=== PATIENT | male | born 1960 | race Caucasian/White ===

== ENCOUNTER 2020-08-04 13:43 | Outpatient (REF) | payer MEDICARE, MEDICAID, SELFPAY ==
--- NOTE | ~2020-08-04 | XR_ITS ---
EXAMINATION: XR CHEST, 2 VIEWS CLINICAL INFORMATION: LLL PNA IN 2017. LT SIDED CHEST PAIN. COMPARISON: 05/05/2017 TECHNIQUE: PA and lateral views of the chest were obtained. FINDINGS: Sternal wires, surgical clips, and prosthetic aortic valve overlie the chest. Lungs are clear. No consolidation, pneumothorax, or pleural effusion. Cardiac and mediastinal contours are normal. Pulmonary vasculature is unremarkable. Trachea is midline. Mild degenerative disc disease in the thoracic spine. XR/XR chest 2V IMPRESSION: No acute pulmonary findings.
== END 2020-08-04 13:44 | disposition home or self-care (01) ==
LOC: HO.HMGCX 13:43
PROVIDERS: PCP Internal Medicine; Visit Provider Internal Medicine
DX: J18.9 Pneumonia, unspecified organism (principal)
CPT/HCPCS: 71046

== ENCOUNTER 2021-09-06 15:29 | Outpatient (REF) | payer MEDICARE, MEDICAID, SELFPAY ==
--- NOTE | ~2021-09-06 | XR_ITS ---
EXAMINATION: XR SHOULDER, LEFT CLINICAL INFORMATION: Left shoulder pain COMPARISON: 06/10/2019 TECHNIQUE: Four views of the left shoulder. FINDINGS: No acute fracture or dislocation. The glenohumeral joint is well aligned. Mild osteophyte formation. The acromioclavicular joint is intact. The visualized lung is clear. The visualized ribs are intact. XR/XR shoulder LT min 2V IMPRESSION: Mild degenerative changes of the glenohumeral joint.
== END 2021-09-06 15:30 | disposition home or self-care (01) ==
LOC: HO.HMGCX 15:29
PROVIDERS: PCP Internal Medicine; Visit Provider Internal Medicine
DX: M25.512 Pain in left shoulder (principal)
CPT/HCPCS: 73030

== ENCOUNTER → 2021-10-23 14:06 | Outpatient (BNVA) | payer MEDICARE, MEDICAID, SELFPAY | PROVIDERS: PCP Internal Medicine; Visit Provider Physician Assistant | DX: M79.18 Myalgia, other site (principal) | CPT/HCPCS: 99202 ==

== ENCOUNTER → 2021-11-14 13:44 | Outpatient (BNVA) | payer MEDICARE, MEDICAID, SELFPAY | PROVIDERS: PCP Internal Medicine; Visit Provider Nurse Practitioner Family | DX: M79.18 Myalgia, other site (principal); Z79.899 Other long term (current) drug therapy | CPT/HCPCS: 99202 ==

== ENCOUNTER 2023-09-26 11:28 | Outpatient (AMB) | payer MEDICARE, MEDICAID, SELFPAY ==
--- NOTE | 2023-09-26 11:32 | MHC.OFFVIS ---
Vital Signs 09/26/23 11:46 Height 6 ft 1 in Weight 222 lb BMI 29.3 BP 141/66 H Blood Pressure Location Lt brachial Position Sitting Pulse 64 Intake Visit Reasons: 2 right toes infected Intake Note: Patient is seen in office for evaluation and treatment of infection of two right toes. Pt c/o: onset one month, 2nd toe getting bigger due to neuropathy and big toe is curling up, had middle toe cut off the tip to release pressure, denies discharge, sees composition weatherboard applier for this issue Panel Machine Operator Required: No Accompanied by: Spouse Allergies peach [PEACH] Allergy (Intermediate, Verified 09/26/23 11:40) COLD SORES metformin [METFORMIN] Adverse Reaction (Severe, Verified 09/26/23 11:40) NAUSEA & VOMITING Medication List - Last Reconciled 09/26/23 by Otf Kaiser MD aspirin (Adult Aspirin Regimen) 81 mg PO DAILY atorvastatin 80 mg PO DAILY blood sugar diagnostic (FreeStyle Lite Strips) As directed blood-glucose meter (FreeStyle [place] Lite kit) As directed empagliflozin (Jardiance) 25 mg PO DAILY glipizide 10 mg PO BID levothyroxine 100 mcg PO DAILY lorazepam 0.5 mg PO TID PRN metoprolol succinate ER 25 mg PO DAILY omeprazole 20 mg PO DAILY pioglitazone 15 mg PO DAILY pregabalin (Lyrica) 300 mg PO TID repaglinide 2 mg PO TID tizanidine 4 mg PO BID PRN triamcinolone acetonide 0.1% appl topical BID HPI Comments Details: 62-year-old male patient with a long history of diabetes mellitus type 2 and previous right 3rd toe amputation now presenting with complaints of ulceration of the right 2nd toe. He reports a deformity in the 2nd toe resulting in the distal phalanx rubbing against his shoe. He now has a distal ulcer below the nail at the tip. This is been treated by his composition weatherboard applier Dr. Cleopatra Mckee DPM. He presents today to discuss a partial amputation of the right 2nd toe distal phalanx to allow healing. He reports bilateral neuropathy with no sensation of pain in the toes. He denies fever or chills. [facility] Medical History (Updated 09/26/23 @ 13:19 by Otf Kaiser MD) Diabetic foot ulcer Diabetes Surgical History H/O right knee surgery Hx of foot surgery History of ankle surgery Hx of heart surgery History of surgery on wrist Hx of cholecystectomy Social History Current occupation: RT hand Review of Systems Const All systems reviewed & are unremarkable except as noted in HPI and below Denies chills, Denies fever(s), Denies headache(s), Denies poor appetite and Denies weakness ENT Denies headache(s) Card Denies chest pain, Denies irregular heart rhythm, Denies palpitations and Denies dyspnea Resp Denies cough, Denies excessive phlegm production and Denies dyspnea GI Denies abdominal pain, Denies bloating, Denies change in bowel habits, Denies constipation, Denies heartburn, Denies diarrhea, Denies nausea and Denies vomiting Denies difficulty urinating and Denies urinary frequency Musc Denies back pain, Denies muscle weakness and Denies numbness Skin/Breast Denies changing lesions and Denies unusual bruising Neuro Denies headache(s), Denies numbness, Denies paresthesias and Denies weakness Psych Denies anxiety and Denies depression Endo Denies palpitations Nahun/Lymph Denies lymphadenopathy Physical Exam Vital Signs: Last Vital Signs Pulse 64 09/26/23 11:46 BP 141/66 H 09/26/23 11:46 BMI result Body Mass Index 29.3 Const General: cooperative and no acute distress Nutritional Appearance: well nourished Orientation/consciousness: patient oriented x3 Limitations: no limitations HEENT Head: Yes normocephalic and Yes atraumatic Ears: hearing grossly normal bilaterally Resp Effort & Inspection: normal respiratory effort, no audible wheezes, no cough and no respiratory distress Cardio Jugular venous distension: no JVD GI Inspection: Yes normal to inspection Skin Other: Warm, dry, no rash Neuro General: patient oriented x3 Extrem General: Yes no clubbing, cyanosis or edema Ankle/foot/toe images: 1. Site of ulceration and swelling 2nd digit right foot distal phalanx. No erythema noted in the proximal 2nd toe Assessment & Plan Assessment & Plan (1) Diabetic foot ulcer: Code(s): E11.621 - Type 2 diabetes mellitus with foot ulcer; L97.509 - Non-pressure chronic ulcer of other part of unspecified foot with unspecified severity Category: Medical Qualifiers: Diabetic foot ulcer location: toe Diabetes mellitus type: type 2 Laterality: right Non-pressure ulcer stage: with fat layer exposed Qualified Code(s): E11.621 - Type 2 diabetes mellitus with foot ulcer; L97.512 - Non-pressure chronic ulcer of other part of right foot with fat layer exposed Plan 62-year-old male patient presenting with a nonhealing ulcer of the right 2nd toe. He had a prior history of amputation of the right 3rd toe and presents today to discuss partial amputation of the affected 2nd right toe. The remainder of the toe appears healthy without erythema/infection. We discussed partial amputation of the distal phalanx as an option and after a discussion of the procedure, risks and alternatives, he consents to partial amputation of the right 2nd toe. Coding Level of Care Code New Pt Level 4 (90030) Diagnoses Diabetic ulcer of toe of right foot associated with type 2 diabetes mellitus, with fat layer exposed E11.621; L97.512 Diabetic foot ulcer location: toe Diabetes mellitus type: type 2 Laterality: right Non-pressure ulcer stage: with fat layer exposed
[2023-09-26 11:46] VITALS: BP 141/66; PULSE 64; BMI 29.3
== END 2023-09-26 12:25 | disposition home or self-care (01) ==
PROVIDERS: PCP Internal Medicine; Referring Provider Internal Medicine; Visit Provider Surgery
DX: E11.621 Type 2 diabetes mellitus with foot ulcer (principal); L97.512 Non-pressure chronic ulcer of other part of right foot with fat layer exposed
CPT/HCPCS: 99204

== ENCOUNTER → 2023-09-26 11:28 | Outpatient (BNVA) | payer MEDICARE, MEDICAID, SELFPAY | PROVIDERS: PCP Internal Medicine; Referring Provider Internal Medicine; Visit Provider Surgery | DX: E11.621 Type 2 diabetes mellitus with foot ulcer (principal); L97.512 Non-pressure chronic ulcer of other part of right foot with fat layer exposed | CPT/HCPCS: 99202 ==

== ENCOUNTER 2023-10-23 13:28 | Outpatient (REF) | payer MEDICARE, MEDICAID, SELFPAY ==
[2023-10-23 14:23] LABS: Estimated Average Glucose 157 mg/dL; Hemoglobin A1c % 7.1 % (<6.0)
[2023-10-23 14:42] LABS: Alanine Aminotransferase 28 U/L (0-40); Albumin Level 4.7 g/dL (3.5-5.0); Alkaline Phosphatase 64 U/L (39-117); Anion Gap 14 (12-20); Aspartate Amino Transferase 20 U/L (5-37); Bilirubin Total 0.6 mg/dL (0.0-1.0); Blood Urea Nitrogen 17 mg/dL (9-16); Calcium 9.6 mg/dL (8.4-10.2); Carbon Dioxide 21 mmol/L (22-29); Chloride 108 mmol/L (96-108); Estimated Glomerular Filt Rate > 60; Glucose Random 207 mg/dL (60-115); Potassium 3.9 mmol/L (3.3-5.1); Sodium 139 mmol/L (135-145); Total Protein 7.7 g/dL (6.5-8.0)
[2023-10-23 14:53] LABS: Free T4 (Free Thyroxine) 0.98 ng/dL (0.71-1.85); Thyroid Stimulating Hormone 6.05 uIU/mL (0.32-4.0)
== END 2023-10-23 13:29 | disposition home or self-care (01) ==
LOC: HO.LAB 13:28
PROVIDERS: PCP Internal Medicine; Visit Provider Internal Medicine
DX: R53.83 Other fatigue (principal); E11.9 Type 2 diabetes mellitus without complications
CPT/HCPCS: 36415; 80053; 83036; 84439; 84443

== ENCOUNTER 2023-11-03 06:12 | Day surgery (SDC) | payer MEDICARE, MEDICAID, SELFPAY ==
--- NOTE | 2023-10-28 10:57 | HO.ANESPROP2 ---
HPI - Anesthesia Eval Consult details Narrative: 63yo M for Right PARTIAL 2nd Toe Amputation, 11/03/23 Pending cardiac clearance d/t diaphoretic No recent illness No CP/SOB within limits of foot pain s/p AVR 2017. Follows [facility] CVA. 2018 DM. A1C 7.1 as of 10/2023 GERD. ppi controls Pt declines to trim or shave barrera. Educated on risk. PMF Active Problems Active Problems: All Active Problems Myofascial pain dysfunction syndrome (Acute) Diabetic foot ulcer (Acute) Past Medical History Medical History Neuropathy CAD (coronary artery disease) Anxiety CVA (cerebral vascular accident) Thrombocytopenia Gastroparesis Coronary atherosclerosis Endocarditis Abscess of aortic root Aortic regurgitation Hyperlipidemia Thyroid disease GERD (gastroesophageal reflux disease) Syncope Diabetic foot ulcer Diabetes Family History Family history of problems with anesthesia: No Surgical History Surgical History Hx of toe surgery H/O colonoscopy History of facial surgery Hx of aortic valve replacement Hx of cardiac catheterization H/O right knee surgery Hx of foot surgery History of ankle surgery History of surgery on wrist Hx of cholecystectomy History of Problems with Anesthesia: No Social History Social History Are you a primary adult day care worker to a significant other at home: No Do you presently have visiting nurse or other home services: No Patient Tobacco Use Status: Former Tobacco user Current occupation: RT hand Meds Allergies Allergy/AdvReac Type Severity Reaction Status Date / Time peach [PEACH] Allergy Intermediate COLD SORES Verified 11/03/23 06:41 metformin [METFORMIN] AdvReac Severe NAUSEA & Verified 11/03/23 06:41 VOMITING Home Medications ?Medication ?Instructions ?Recorded ?Confirmed ?Last Taken ?Type atorvastatin 80 mg tablet 80 mg PO BEDTIME 10/23/21 11/03/23 11/02/23 History blood sugar diagnostic (FreeStyle #10 ea 10/23/21 Unknown History Lite Strips) blood-glucose meter (FreeStyle #1 ea 10/23/21 Unknown History [place] Lite kit) empagliflozin 25 mg tablet 25 mg PO DAILY 10/23/21 11/03/23 10/31/23 History (Jardiance) glipizide 5 mg tablet 10 mg PO BID 10/23/21 11/03/23 11/02/23 History metoprolol succinate 25 mg 25 mg PO DAILY 10/23/21 11/03/23 11/03/23 History tablet,extended release 24 hr omeprazole 20 mg capsule,delayed 20 mg PO DAILY 10/23/21 11/03/23 11/03/23 History release triamcinolone acetonide 0.1 % 1 appl topical BID PRN Wound Care 10/23/21 10/28/23 Unknown History topical cream aspirin 81 mg tablet,delayed 81 mg PO DAILY 11/14/21 10/28/23 Unknown History release (Adult Aspirin Regimen) pioglitazone 15 mg tablet 15 mg PO DAILY 11/14/21 11/03/23 11/02/23 History pregabalin 300 mg capsule (Lyrica) 300 mg PO BID 11/14/21 11/03/23 11/03/23 History acetaminophen 650 mg 650 mg PO Q8H PRN Pain 10/28/23 10/28/23 Unknown History tablet,extended release amoxicillin 500 mg tablet 2,000 mg PO ONCE 10/28/23 10/28/23 Unknown History cyclobenzaprine 10 mg tablet 10 mg PO TID PRN muscle spasm 10/28/23 10/28/23 Unknown History levothyroxine 125 mcg tablet 125 mcg PO DAILY 10/28/23 11/03/23 11/03/23 History lorazepam 0.5 mg tablet 1 mg PO DAILY PRN Anxiety 10/28/23 10/28/23 Unknown History Exam Airway Mallampati Class: I (Small mouth) TM Dist: >3cm Neck ROM: Full Loose/Missing/Broken Teeth: Yes (Broken throughout, no loose, Left upper molars = permanent bridge) Heart: RRR Lungs: CTAB Assessment and Plan Assessment Anesthesia Assessment: Anesthesia Plan Discussed and PAT Visit Final Anesthetic Review Family History of Problems with Anesthesia: No History of Problems with Anesthesia: No
[2023-10-28 11:05] VITALS: BMI 29.3
[2023-10-28 11:11] VITALS: BP 130/65; PULSE 57; RESP 20; O2SAT 97
[2023-11-03 06:52] LABS: Glucose, Whole Blood 182 mg/dL (60-115)
[2023-11-03 06:55] VITALS: BP 133/73; PULSE 55; RESP 16; TEMP 35.9; O2SAT 100
[2023-11-03] MEDS: Lactated Ringers 1,000 ML 100 ML IVCONT (06:57)
--- NOTE | 2023-11-03 07:27 | P.HPSUR_ITS ---
Pre-Procedural Eval Section A - 24 Hr Update-Section A only Date of Service: 11/03/23 The patient is an INPATIENT: No Changes since office visit: Yes Patient answered all questions; No Cold of Flu in the past 2 weeks, No New Medical Problems and No Changes in Medication The patient has been examined within 24 hours of the surgical procedure. The History & Physical has been completed within 30 days and I have reviewed it.: No Section B - Complete if H&P > 30 days Chief Complaint: Non-pressure chronic ulcer of other part of right, Details of Present Illness: No changes since prior visit Relevant Family History (Specify if Yes): No Relevant Social History: None Present Medications: see Short Stay Collaborative assessment Medical History: Significant History (Diabetes) History of Previous Operations: Relevant previous surgery/procedure and date(s) (Previous toe amputation 3rd toe right foot) Allergies: Allergies Allergy/AdvReac Type Severity Reaction Status Date / Time peach [PEACH] Allergy Intermediate COLD SORES Verified 11/03/23 06:41 metformin [METFORMIN] AdvReac Severe NAUSEA & Verified 11/03/23 06:41 VOMITING Review of Systems Sugical H&P ROS: Negative: Constitution, Cardiovascular, Respiratory, Neurological, Psychiatric, Hem-Onc, Allergic/Immunologic, Gastrointestinal, Genitourinary, Musculoskeletal, Integumentary, Endocrine and Eye s/Ears/Nose/Throat Exam Surgical H&P Exam: Normal: HEENT, Normal: Heart, Normal: Lungs, Normal: Extremities, Normal: Abdomen, Normal: Skin and Normal: Neurological Plan Diagnosis/Plan: Unchanged I have reviewed the history and physical and performed a pertinent physical examination on my patient. No changes have occurred unless specified. Time Spent With Patient Time: Total time managing care of this patient today ____ minutes.
--- NOTE | 2023-11-03 07:57 | HO.ANESPROP2 ---
[facility] Active Problems Active Problems: All Active Problems Myofascial pain dysfunction syndrome (Acute) Diabetic foot ulcer (Acute) Past Medical History Medical History Neuropathy CAD (coronary artery disease) Anxiety CVA (cerebral vascular accident) Thrombocytopenia Gastroparesis Coronary atherosclerosis Endocarditis Abscess of aortic root Aortic regurgitation Hyperlipidemia Thyroid disease GERD (gastroesophageal reflux disease) Syncope Diabetic foot ulcer Diabetes Functional capacity: independent ambulation Family History Family history of problems with anesthesia: No Surgical History Surgical History Hx of toe surgery H/O colonoscopy History of facial surgery Hx of aortic valve replacement Hx of cardiac catheterization H/O right knee surgery Hx of foot surgery History of ankle surgery History of surgery on wrist Hx of cholecystectomy History of Problems with Anesthesia: No Social History Social History Are you a primary acute care physician to a significant other at home: No Do you presently have visiting nurse or other home services: No Patient Tobacco Use Status: Former Tobacco user Use of substances other than those prescribed or required for medical reasons: No Substance Use Frequency: Occasionally Have you been hit, kicked, punched, or otherwise hurt by someone within the past year? If so, by whom?: No Are you DNR?: No Advance Directives: No Advance Directives Information Provided: Yes Advance Directives on File: No Recently lost weight without trying: No Eating poorly because of decreased appetite: No Nutrition Risks: No Nutritional Risk Poor oral hygiene: Yes (missing teeth and a upper bridge) Current occupation: RT hand Meds Allergies Allergy/AdvReac Type Severity Reaction Status Date / Time peach [PEACH] Allergy Intermediate COLD SORES Verified 11/03/23 06:41 metformin [METFORMIN] AdvReac Severe NAUSEA & Verified 11/03/23 06:41 VOMITING Active Medications: Current Medications Lactated Ringer's (Lr) 1,000 mls @ 100 mls/hr IVCONT .Q10H DEISY Last Admin: 11/03/23 06:57 Dose: 100 mls/hr Home Medications ?Medication ?Instructions ?Recorded ?Confirmed ?Last Taken ?Type atorvastatin 80 mg tablet 80 mg PO BEDTIME 10/23/21 11/03/23 11/02/23 History blood sugar diagnostic (FreeStyle #10 ea 10/23/21 Unknown History Lite Strips) blood-glucose meter (FreeStyle #1 ea 10/23/21 Unknown History [place] Lite kit) empagliflozin 25 mg tablet 25 mg PO DAILY 10/23/21 11/03/23 10/31/23 History (Jardiance) glipizide 5 mg tablet 10 mg PO BID 10/23/21 11/03/23 11/02/23 History metoprolol succinate 25 mg 25 mg PO DAILY 10/23/21 11/03/23 11/03/23 History tablet,extended release 24 hr omeprazole 20 mg capsule,delayed 20 mg PO DAILY 10/23/21 11/03/23 11/03/23 History release triamcinolone acetonide 0.1 % 1 appl topical BID PRN Wound Care 10/23/21 10/28/23 Unknown History topical cream aspirin 81 mg tablet,delayed 81 mg PO DAILY 11/14/21 10/28/23 Unknown History release (Adult Aspirin Regimen) pioglitazone 15 mg tablet 15 mg PO DAILY 11/14/21 11/03/23 11/02/23 History pregabalin 300 mg capsule (Lyrica) 300 mg PO BID 11/14/21 11/03/23 11/03/23 History acetaminophen 650 mg 650 mg PO Q8H PRN Pain 10/28/23 10/28/23 Unknown History tablet,extended release amoxicillin 500 mg tablet 2,000 mg PO ONCE 10/28/23 10/28/23 Unknown History cyclobenzaprine 10 mg tablet 10 mg PO TID PRN muscle spasm 10/28/23 10/28/23 Unknown History levothyroxine 125 mcg tablet 125 mcg PO DAILY 10/28/23 11/03/23 11/03/23 History lorazepam 0.5 mg tablet 1 mg PO DAILY PRN Anxiety 10/28/23 10/28/23 Unknown History Exam Height,Weight and Vital Signs: Height 6 ft 1 in Weight 100.698 kg Last Vital Signs Temp 96.7 F L 11/03/23 06:55 Pulse 55 11/03/23 06:55 Resp 16 11/03/23 06:55 BP 133/73 11/03/23 06:55 Pulse Ox 100 11/03/23 06:55 O2 Del Method Room Air 11/03/23 06:55 Pertinent Lab Results Pertinent Lab Results: Laboratory Tests 11/03/23 06:48 POC Glucose 182 H Airway Mallampati Class: III TM Dist: >3cm Neck ROM: Full Heart: RRR Lungs: CTA Assessment and Plan Assessment Anesthesia Assessment: Anesthesia Plan Discussed and Smoking Cess. Discussed Final Anesthetic Review Family History of Problems with Anesthesia: No History of Problems with Anesthesia: No NPO: Yes ASA Class: III Final Preanesthetic Review: Meds/Allgs Chart Reviewed, Consent Obtained/Reviewed and Anes Risks/Benef Reviewed Patient Risk: Low Procedure Risk: Low Anesthetic Plan Anesthetic Plan: GA Disposition: Standard PACU
--- NOTE | 2023-11-03 08:27 | P.OP_ITS ---
Operative Note Operative Note Date of Service: 11/03/23 Narrative: Preoperative diagnosis: Nonhealing right 2nd toe diabetic ulcer Postoperative diagnosis: Same Procedure: Partial amputation right 2nd toe Surgeon: Otf Kaiser MD Internal Affairs Investigator: Jacob Walker MS-3, Khurram Jolley Anesthesia: General LMA Indications for procedure: 63-year-old male patient with previous history of diabetes and a long history of a nonhealing ulcer of the right 2nd toe. He previously underwent amputation of the right 3rd toe. He presents today for partial amputation of the right 2nd toe. Operative findings: Ulceration at the tip of the right 2nd toe with no evidence of abscess Specimen: Right toe distal and middle phalanx Estimated blood loss: 5 mL Complications: None Procedure details: Patient was brought to the OR placed in a supine position. After administering general anesthesia the patient's right foot was prepped with Betadine and draped in a sterile fashion. A surgical time-out was called the consent confirmed. Patient received preoperative antibiotics and Venodyne boots were in place. A digital block was then applied to the 2nd toe using 0.5% Sensorcaine. A fishmouth type incision was then created to incorporate the ulceration and nail bed at the distal phalanx. This was continued on either side along the middle phalanx. Electrocautery was then used to dissect down to bone and hemostasis was assured using electrocautery. When the distal middle phalanx was fully exposed a bone cutter was used to divide the bone at this level. The specimen was passed off the table and sent to pathology for further examination. Wounds were then irrigated with saline solution and suctioned dry. Dermis was then reapproximated using interrupted 3-0 Polysorb sutures. Skin was closed using interrupted 4-0 nylon sutures. Sterile dressings consisting of 4 x 4 gauze and Kerlix were then applied. The patient tolerated the procedure well. Sponge, instrument, and needle counts reported as correct. The patient was transferred to PACU in stable condition.
[2023-11-03 08:34] VITALS: BP 120/64; PULSE 64; RESP 16; TEMP 35.9; O2SAT 96
[2023-11-03 08:39] VITALS: BP 126/69; PULSE 59; RESP 16; O2SAT 96
[2023-11-03 08:44] VITALS: BP 127/70; PULSE 61; RESP 16; O2SAT 96
[2023-11-03 08:49] VITALS: BP 123/69; PULSE 61; RESP 16; TEMP 36.1; O2SAT 95
[2023-11-03 09:04] VITALS: BP 127/60; PULSE 55; RESP 16; O2SAT 97
--- NOTE | 2023-11-03 09:26 | HO.POSTANES ---
Post Anesthesia Evaluation Post Anesthesia Evaluation Date of Service: 11/03/23 Vital Signs: Vital Signs Temp Pulse Resp BP Pulse Ox O2 Del Method 11/03/23 09:04 55 16 127/60 97 Room Air 11/03/23 08:49 97 F 61 16 123/69 95 Room Air 11/03/23 08:44 61 16 127/70 96 Room Air 11/03/23 08:39 59 16 126/69 96 Room Air 11/03/23 08:34 96.7 F L 64 16 120/64 96 Room Air 11/03/23 06:55 96.7 F L 55 16 133/73 100 Room Air Anesthesia: General LMA Mental Status: Awake Pain Control: Satisfactory Nausea/Vomiting: None Hydration: Adequate Anesthesia-Related Issues: No Anes. Related Issues
--- NOTE | 2023-11-03 17:38 | HO.POSTANES ---
Post Anesthesia Evaluation Post Anesthesia Evaluation Date of Service: 11/03/23 Vital Signs: Vital Signs Temp Pulse Resp BP Pulse Ox O2 Del Method 11/03/23 09:04 55 16 127/60 97 Room Air 11/03/23 08:49 97 F 61 16 123/69 95 Room Air 11/03/23 08:44 61 16 127/70 96 Room Air 11/03/23 08:39 59 16 126/69 96 Room Air 11/03/23 08:34 96.7 F L 64 16 120/64 96 Room Air 11/03/23 06:55 96.7 F L 55 16 133/73 100 Room Air Anesthesia: General Mental Status: Awake Pain Control: Satisfactory Nausea/Vomiting: None Hydration: Adequate Anesthesia-Related Issues: No Anes. Related Issues
== END 2023-11-03 09:43 | disposition home or self-care (01) ==
PROVIDERS: PCP Internal Medicine; Visit Provider Surgery
PROC: (CPT 28124; principal; 2023-11-03 07:30)
DX: E11.621 Type 2 diabetes mellitus with foot ulcer (principal); L97.512 Non-pressure chronic ulcer of other part of right foot with fat layer exposed; Z89.421 Acquired absence of other right toe(s); Z79.84 Long term (current) use of oral hypoglycemic drugs; Z79.82 Long term (current) use of aspirin; Z79.899 Other long term (current) drug therapy; Z88.8 Allergy status to other drugs, medicaments and biological substances; Z98.890 Other specified postprocedural states
CPT/HCPCS: 28124; 82947; 88305; 88311; J0690; J2250; J2405; J2704; J2795; J3010

== ENCOUNTER → 2023-11-03 06:12 | Outpatient (BNV) | payer MEDICARE, MEDICAID, SELFPAY | PROVIDERS: PCP Internal Medicine; Visit Provider Surgery | DX: E11.621 Type 2 diabetes mellitus with foot ulcer (principal); L97.512 Non-pressure chronic ulcer of other part of right foot with fat layer exposed | CPT/HCPCS: 28825 ==

== ENCOUNTER → 2023-11-07 10:28 | Outpatient (BNVA) | payer MEDICARE, MEDICAID, SELFPAY | PROVIDERS: PCP Internal Medicine; Visit Provider Surgery | DX: Z48.00 Encounter for change or removal of nonsurgical wound dressing (principal); Z89.429 Acquired absence of other toe(s), unspecified side | CPT/HCPCS: 99211 ==

== ENCOUNTER 2023-11-13 14:56 | Outpatient (AMB) | payer MEDICARE, MEDICAID, SELFPAY ==
--- NOTE | 2023-11-13 15:06 | MHC.OFFVIS ---
Vital Signs 11/13/23 15:14 Height 6 ft 1 in Weight 226 lb BMI 29.8 BP 121/58 L Blood Pressure Location Lt brachial Position Sitting Pulse 60 Intake Visit Reasons: S/P partial amputation Rt second toe Intake Note: Patient is seen in office for post op assessment post partial amputation right 2nd toe. Pt c/o: sore, open spot, discharge, dry blood around the area Op: 11/03/23 Physical Fitness Teacher Required: No Accompanied by: Spouse Allergies peach [PEACH] Allergy (Intermediate, Verified 11/13/23 15:13) COLD SORES metformin [METFORMIN] Adverse Reaction (Severe, Verified 11/13/23 15:13) NAUSEA & VOMITING HPI Comments Details: 62-year-old male patient with a long history of diabetes mellitus type 2 and previous right 3rd toe amputation now presenting with complaints of ulceration of the right 2nd toe. He reports a deformity in the 2nd toe resulting in the distal phalanx rubbing against his shoe. He developed a distal ulcer below the nail at the tip. This is been treated by his manufacturing accountant Dr. Cleopatra Mckee DPM. He subsequently underwent partial amputation of the right 2nd toe. He returns today for wound check and suture removal. [facility] Medical History Neuropathy CAD (coronary artery disease) Anxiety CVA (cerebral vascular accident) Thrombocytopenia Gastroparesis Coronary atherosclerosis Endocarditis Abscess of aortic root Aortic regurgitation Hyperlipidemia Thyroid disease GERD (gastroesophageal reflux disease) Syncope Diabetic foot ulcer Diabetes Surgical History History of partial ray amputation of second toe of right foot (11/03/23) Hx of toe surgery H/O colonoscopy History of facial surgery Hx of aortic valve replacement Hx of cardiac catheterization H/O right knee surgery Hx of foot surgery History of ankle surgery History of surgery on wrist Hx of cholecystectomy Social History Are you a primary physician assistant primary care to a significant other at home: No Do you presently have visiting nurse or other home services: No Patient Tobacco Use Status: Former Tobacco user Current occupation: RT hand Physical Exam Const General: no acute distress Nutritional Appearance: well nourished Orientation/consciousness: patient oriented x3 Resp Effort & Inspection: normal respiratory effort Neuro General: patient oriented x3 Extrem Other: Partial amputation of right 2nd toe. Incision is discolored from bleeding post procedure however wounds are clean and intact. Sutures removed and Steri-Strips applied. Assessment & Plan Assessment & Plan (1) Diabetic foot ulcer: Code(s): E11.621 - Type 2 diabetes mellitus with foot ulcer; L97.509 - Non-pressure chronic ulcer of other part of unspecified foot with unspecified severity Category: Medical Qualifiers: Diabetic foot ulcer location: toe Diabetes mellitus type: type 2 Laterality: right Non-pressure ulcer stage: with fat layer exposed Qualified Code(s): E11.621 - Type 2 diabetes mellitus with foot ulcer; L97.512 - Non-pressure chronic ulcer of other part of right foot with fat layer exposed Plan Patient returns for wound check following right 2nd toe partial amputation. Wounds are clean and intact. Sutures removed and Steri-Strips applied. I recommended follow-up examination in 1 month. He should call sooner for any new complaints Coding Level of Care Code Global (56717) Diagnoses Diabetic ulcer of toe of right foot associated with type 2 diabetes mellitus, with fat layer exposed E11.621; L97.512 Diabetic foot ulcer location: toe Diabetes mellitus type: type 2 Laterality: right Non-pressure ulcer stage: with fat layer exposed
[2023-11-13 15:14] VITALS: BP 121/58; PULSE 60; BMI 29.8
== END 2023-11-13 15:31 | disposition home or self-care (01) ==
PROVIDERS: PCP Internal Medicine; Visit Provider Surgery
DX: E11.621 Type 2 diabetes mellitus with foot ulcer (principal); L97.512 Non-pressure chronic ulcer of other part of right foot with fat layer exposed
CPT/HCPCS: 99024

== ENCOUNTER → 2023-11-13 14:56 | Outpatient (BNVA) | payer MEDICARE, MEDICAID, SELFPAY | PROVIDERS: PCP Internal Medicine; Visit Provider Surgery | DX: E11.621 Type 2 diabetes mellitus with foot ulcer (principal); L97.512 Non-pressure chronic ulcer of other part of right foot with fat layer exposed; Z89.411 Acquired absence of right great toe | CPT/HCPCS: 99212 ==

== ENCOUNTER 2023-11-21 08:34 | Outpatient (REF) | payer MEDICARE, MEDICAID, SELFPAY ==
[2023-11-21 09:28] LABS: MANUAL DIFF FLAG NO
[2023-11-21 10:23] LABS: Basophils Percent Auto 0.6 % (0-2); Eosinophils Absolute Auto 0.1 X10*3/uL (0.0-0.4); Eosinophils Percent Auto 1.8 % (0-4); Hematocrit 44.6 % (42.0-52.0); Hemoglobin 15.1 g/dl (14.0-18.0); Imm Gran Abs Auto 0.04 X10*3/uL (0.00-0.03); Imm Gran Pct Auto 0.6 % (0.0-0.4); Lymphocytes Absolute Auto 2.2 X10*3/uL (1.2-4.9); Lymphocytes Percent Auto 31.5 % (20-40); Mean Corpuscular HGB Conc 33.9 g/dl (31.0-36.0); Mean Corpuscular Hemoglobin 31.4 pg (27.0-33.0); Mean Corpuscular Volume 92.7 fL (80.0-98.0); Monocytes Absolute Auto 0.5 X10*3/uL (0.1-1.2); Monocytes Percent Auto 6.9 % (2-11); Neutrophils Percent Auto 58.6 % (45-73); Red Blood Count 4.81 X10*6/uL (4.60-5.80); Red Cell Distribution Width 13.2 % (11.0-16.0); White Blood Count 6.8 X10*3/uL (4.8-10.8)
[2023-11-21 10:55] LABS: Mean Platelet Volume 12.6 fL (9.4-12.4); Platelet Count 98 X10*3/uL (160-400)
== END 2023-11-21 08:35 | disposition home or self-care (01) ==
LOC: HO.LAB 08:34
PROVIDERS: PCP Internal Medicine; Visit Provider Surgery
DX: D12.6 Benign neoplasm of colon, unspecified (principal); E11.621 Type 2 diabetes mellitus with foot ulcer; L97.512 Non-pressure chronic ulcer of other part of right foot with fat layer exposed
CPT/HCPCS: 36415; 85025; 99212

== ENCOUNTER 2023-11-21 08:34 | Outpatient (AMB) | payer MEDICARE, MEDICAID, SELFPAY ==
--- NOTE | 2023-11-21 08:44 | MHC.OFFVIS ---
Vital Signs 11/21/23 08:45 Height 6 ft 1 in Weight 226 lb 0.004 oz BMI 29.8 Intake Visit Reasons: wound check Intake Note: Patient is seen in office for wound check, post partial amputation Rt second toe. Pt c/o: reports toe is split , reports concern of infection, pt will like to get labs and x-ray ordered to rule out ? infection, reports non-healing wound. 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 Accompanied by: Spouse Allergies peach [PEACH] Allergy (Intermediate, Verified 11/21/23 08:51) COLD SORES metformin [METFORMIN] Adverse Reaction (Severe, Verified 11/21/23 08:51) NAUSEA & VOMITING Medication List - Last Reconciled 11/21/23 by Otf Kaiser MD acetaminophen ER 650 mg PO Q8H PRN amoxicillin 2,000 mg PO ONCE aspirin (Adult Aspirin Regimen) 81 mg PO DAILY atorvastatin 80 mg PO BEDTIME blood sugar diagnostic (FreeStyle Lite Strips) As directed blood-glucose meter (FreeStyle [place] Lite kit) As directed cyclobenzaprine 10 mg PO TID PRN empagliflozin (Jardiance) 25 mg PO DAILY glipizide 10 mg PO BID levothyroxine 125 mcg PO DAILY lorazepam 1 mg PO DAILY PRN metoprolol succinate ER 25 mg PO DAILY omeprazole 20 mg PO DAILY oxycodone 5 mg PO Q6H PRN pioglitazone 15 mg PO DAILY pregabalin (Lyrica) 300 mg PO BID triamcinolone acetonide 0.1% 1 appl topical BID PRN HPI Comments Details: Patient returns to report that the wound had popped open on Friday after going into the pool. He reports this always happens to him. He reports he has been keeping it covered. [facility] Medical History (Updated 11/21/23 @ 09:11 by Otf Kaiser MD) Neuropathy CAD (coronary artery disease) Anxiety CVA (cerebral vascular accident) Thrombocytopenia Gastroparesis Coronary atherosclerosis Endocarditis Abscess of aortic root Aortic regurgitation Hyperlipidemia Thyroid disease GERD (gastroesophageal reflux disease) Syncope Diabetic foot ulcer Diabetes Surgical History History of partial ray amputation of second toe of right foot (11/03/23) Hx of toe surgery H/O colonoscopy History of facial surgery Hx of aortic valve replacement Hx of cardiac catheterization H/O right knee surgery Hx of foot surgery History of ankle surgery History of surgery on wrist Hx of cholecystectomy Social History Are you a primary intensive care medicine specialist to a significant other at home: No Do you presently have visiting nurse or other home services: No Patient Tobacco Use Status: Former Tobacco user Current occupation: RT hand Physical Exam Vital Signs: BMI result Body Mass Index 29.8 Extrem Other: Right 2nd toe has split open with skin noted in the center. The skin was excised to reveal subcutaneous tissue but no exposed bone. Silver alginate followed by dry sterile dressings applied. Assessment & Plan Assessment & Plan (1) Diabetic foot ulcer: Comment: Right 2nd toe Code(s): E11.621 - Type 2 diabetes mellitus with foot ulcer; L97.509 - Non-pressure chronic ulcer of other part of unspecified foot with unspecified severity Category: Medical Qualifiers: Diabetic foot ulcer location: toe Diabetes mellitus type: type 2 Laterality: right Non-pressure ulcer stage: with fat layer exposed Qualified Code(s): E11.621 - Type 2 diabetes mellitus with foot ulcer; L97.512 - Non-pressure chronic ulcer of other part of right foot with fat layer exposed Plan Patient should apply silver alginate daily with dry sterile dressings and keep the wound covered at all times. He should avoid going in the pool. I recommended he follow-up in 1 week. We will check a CBC today. Orders: Orders Complete Blood Count Auto Diff Today D12.6 - Benign neoplasm of colon, unspecified Coding Level of Care Code Global (51211) Diagnoses Diabetic ulcer of toe of right foot associated with type 2 diabetes mellitus, with fat layer exposed E11.621; L97.512 Diabetic foot ulcer location: toe Diabetes mellitus type: type 2 Laterality: right Non-pressure ulcer stage: with fat layer exposed
[2023-11-21 08:45] VITALS: BMI 29.8
== END 2023-11-21 09:09 | disposition home or self-care (01) ==
PROVIDERS: PCP Internal Medicine; Visit Provider Surgery
DX: E11.621 Type 2 diabetes mellitus with foot ulcer (principal); L97.512 Non-pressure chronic ulcer of other part of right foot with fat layer exposed
CPT/HCPCS: 99024

== ENCOUNTER 2023-11-27 15:11 | Outpatient (AMB) | payer MEDICARE, MEDICAID, SELFPAY ==
--- NOTE | 2023-11-27 15:17 | A.OFFVIS_ITS ---
Vital Signs 11/27/23 15:18 Height 6 ft 1 in Weight 224 lb 13.944 oz BMI 29.7 Intake Visit Reasons: wound check Intake Note: Patient is seen in office for wound check, post partial amputation Rt second toe. 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 He reports bleeding from the incision but has been applying the silver alginate as instructed. He denies any new symptoms in the foot. Previous laboratories revealed a normal WBC. [facility] Medical History Neuropathy CAD (coronary artery disease) Anxiety CVA (cerebral vascular accident) Thrombocytopenia Gastroparesis Coronary atherosclerosis Endocarditis Abscess of aortic root Aortic regurgitation Hyperlipidemia Thyroid disease GERD (gastroesophageal reflux disease) Syncope Diabetic foot ulcer Diabetes Surgical History History of partial ray amputation of second toe of right foot (11/03/23) Hx of toe surgery H/O colonoscopy History of facial surgery Hx of aortic valve replacement Hx of cardiac catheterization H/O right knee surgery Hx of foot surgery History of ankle surgery History of surgery on wrist Hx of cholecystectomy Social History Are you a primary healthcare network pricing consultant to a significant other at home: No Do you presently have visiting nurse or other home services: No Patient Tobacco Use Status: Former Tobacco user Current occupation: RT hand Physical Exam Vital Signs: BMI result Body Mass Index 29.7 Extrem Other: Right 2nd toe Wound remained however there is new granulation tissue noted at the wound base with epithelialization at the margins. Silver alginate reapplied dry sterile dressings covering silver alginate, followed by paper tape. No new necrotic tissue identified. No evidence of underlying abscess. Assessment & Plan Assessment & Plan (1) Diabetic foot ulcer: Comment: Right 2nd toe Code(s): E11.621 - Type 2 diabetes mellitus with foot ulcer; L97.509 - Non-pressure chronic ulcer of other part of unspecified foot with unspecified severity Category: Medical Qualifiers: Diabetic foot ulcer location: toe Diabetes mellitus type: type 2 [place] terality: right Non-pressure ulcer stage: with fat layer exposed Qualified Code(s): E11.621 - Type 2 diabetes mellitus with foot ulcer; L97.512 - Non- pressure chronic ulcer of other part of right foot with fat layer exposed Plan Continue local care with Silver alginate and dry sterile dressings. follow- up in 2 weeks. Coding Level of Care Code Global (32634) Diagnoses Diabetic ulcer of toe of right foot associated with type 2 diabetes mellitus, with fat layer exposed E11.621; L97.512 Diabetic foot ulcer location: toe Diabetes mellitus type: type 2 Laterality: right Non-pressure ulcer stage: with fat layer exposed
[2023-11-27 15:18] VITALS: BMI 29.7
== END 2023-11-27 15:29 | disposition home or self-care (01) ==
PROVIDERS: PCP Internal Medicine; Visit Provider Surgery
DX: E11.621 Type 2 diabetes mellitus with foot ulcer (principal); L97.512 Non-pressure chronic ulcer of other part of right foot with fat layer exposed
CPT/HCPCS: 99024

== ENCOUNTER → 2023-11-27 15:11 | Outpatient (BNVA) | payer MEDICARE, MEDICAID, SELFPAY | PROVIDERS: PCP Internal Medicine; Visit Provider Surgery | DX: E11.621 Type 2 diabetes mellitus with foot ulcer (principal); L97.512 Non-pressure chronic ulcer of other part of right foot with fat layer exposed | CPT/HCPCS: 99212 ==

== ENCOUNTER 2023-12-12 11:37 | Outpatient (AMB) | payer MEDICARE, MEDICAID, SELFPAY ==
--- NOTE | 2023-12-12 11:49 | MHC.OFFVIS ---
Vital Signs 12/12/23 11:56 Height 6 ft 1 in Weight 224 lb 13.944 oz BMI 29.7 Pulse 62 Intake Visit Reasons: 2 week wound check Intake Note: Patient is seen in office for 2 weeks follow up visit, post partial amputation right second toe. 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 Accompanied by: Spouse Allergies peach [PEACH] Allergy (Intermediate, Verified 12/12/23 11:51) COLD SORES metformin [METFORMIN] Adverse Reaction (Severe, Verified 12/12/23 11:51) NAUSEA & VOMITING Medication List - Last Reconciled 12/12/23 by Otf Kaiser MD acetaminophen ER 650 mg PO Q8H PRN amoxicillin 2,000 mg PO ONCE aspirin (Adult Aspirin Regimen) 81 mg PO DAILY atorvastatin 80 mg PO BEDTIME blood sugar diagnostic (FreeStyle Lite Strips) As directed blood-glucose meter (FreeStyle [place] Lite kit) As directed cyclobenzaprine 10 mg PO TID PRN empagliflozin (Jardiance) 25 mg PO DAILY glipizide 10 mg PO BID levothyroxine 125 mcg PO DAILY lorazepam 1 mg PO DAILY PRN metoprolol succinate ER 25 mg PO DAILY omeprazole 20 mg PO DAILY oxycodone 5 mg PO Q6H PRN pioglitazone 15 mg PO DAILY pregabalin (Lyrica) 300 mg PO BID triamcinolone acetonide 0.1% 1 appl topical BID PRN HPI Comments Details: Patient returns for follow-up examination of his right 2nd toe wound. He reports some burning pain from the open wound. He is noticing some skin changes in color with a bluish discoloration. He continues to do daily dressing changes with the silver alginate. He is requesting revision of the amputation because he is concerned the toe will hit issues. He is also requesting sirisha instead of stitches. [facility] Medical History Neuropathy CAD (coronary artery disease) Anxiety CVA (cerebral vascular accident) Thrombocytopenia Gastroparesis Coronary atherosclerosis Endocarditis Abscess of aortic root Aortic regurgitation Hyperlipidemia Thyroid disease GERD (gastroesophageal reflux disease) Syncope Diabetic foot ulcer Diabetes Surgical History History of partial ray amputation of second toe of right foot (11/03/23) Hx of toe surgery H/O colonoscopy History of facial surgery Hx of aortic valve replacement Hx of cardiac catheterization H/O right knee surgery Hx of foot surgery History of ankle surgery History of surgery on wrist Hx of cholecystectomy Social History Are you a primary child care attendant to a significant other at home: No Do you presently have visiting nurse or other home services: No Patient Tobacco Use Status: Former Tobacco user Current occupation: RT hand Review of Systems Const All systems reviewed & are unremarkable except as noted in HPI and below Physical Exam Vital Signs: Last Vital Signs Pulse 62 12/12/23 11:56 BMI result Body Mass Index 29.7 Const General: no acute distress Nutritional Appearance: well nourished Orientation/consciousness: patient oriented x3 Resp Effort & Inspection: normal respiratory effort, no cough, respiratory effort not decreased and no respiratory distress GI Inspection: Yes normal to inspection Neuro General: patient oriented x3 Extrem Other: Right 2nd toe Wound remained however there is new granulation tissue noted at the wound base with epithelialization at the margins. Silver alginate reapplied dry sterile dressings covering silver alginate, followed by paper tape. No new necrotic tissue identified. No evidence of underlying abscess. Assessment & Plan Assessment & Plan (1) Diabetic foot ulcer: Comment: Right 2nd toe Code(s): E11.621 - Type 2 diabetes mellitus with foot ulcer; L97.509 - Non-pressure chronic ulcer of other part of unspecified foot with unspecified severity Category: Medical Qualifiers: Diabetic foot ulcer location: toe Diabetes mellitus type: type 2 Laterality: right Non-pressure ulcer stage: with fat layer exposed Qualified Code(s): E11.621 - Type 2 diabetes mellitus with foot ulcer; L97.512 - Non-pressure chronic ulcer of other part of right foot with fat layer exposed Plan 63-year-old male patient presenting for re-evaluation of his right 2nd toe amputation site. He continues to have an open wound which does appear to be moderately improved from his previous examination. The patient is concerned about the bluish discoloration in his requested revision of the amputation as the toe has swelling and now has a bluish discoloration. After discussion of the procedure, risks, and alternatives, he consents to revision of the right 2nd toe amputation. This will be scheduled as a short-stay surgery at his earliest convenience. Coding Level of Care Code Global (33546) Diagnoses Diabetic ulcer of toe of right foot associated with type 2 diabetes mellitus, with fat layer exposed E11.621; L97.512 Diabetic foot ulcer location: toe Diabetes mellitus type: type 2 Laterality: right Non-pressure ulcer stage: with fat layer exposed
[2023-12-12 11:56] VITALS: PULSE 62; BMI 29.7
== END 2023-12-12 12:20 | disposition home or self-care (01) ==
PROVIDERS: PCP Internal Medicine; Visit Provider Surgery
DX: E11.621 Type 2 diabetes mellitus with foot ulcer (principal); L97.512 Non-pressure chronic ulcer of other part of right foot with fat layer exposed
CPT/HCPCS: 99024

== ENCOUNTER → 2023-12-12 11:37 | Outpatient (BNVA) | payer MEDICARE, MEDICAID, SELFPAY | PROVIDERS: PCP Internal Medicine; Visit Provider Surgery | DX: E11.621 Type 2 diabetes mellitus with foot ulcer (principal); L97.509 Non-pressure chronic ulcer of other part of unspecified foot with unspecified severity; T87.89 Other complications of amputation stump; Z89.421 Acquired absence of other right toe(s) | CPT/HCPCS: 99212 ==

== ENCOUNTER 2023-12-22 06:18 | Day surgery (SDC) | payer MEDICARE, MEDICAID, SELFPAY ==
--- NOTE | 2023-12-18 14:51 | P.CONAN_ITS ---
Documented by User: Reanna Maria NP 12/18/23 14:57 HPI - Anesthesia Eval Consult details Narrative: 63yo M for Right 2nd Toe Amputation REVISION s/p Right PARTIAL 2nd Toe Amputation, 11/03/23, GA-LMA 4 Cardiac optimized prior Per 10/2023 PAT assess: No recent illness No CP/SOB within limits of foot pain s/p AVR 2018. Follows [facility] CVA. 2018 DM. A1C 7.1 as of 10/2023 GERD. ppi controls Pt declines to trim or shave barrera. Educated on risk. Anesthesia Pre-Procedure Meds Is the patient on any of the following meds?: SGLT2 Inhib PMFSH Active Problems Active Problems: All Active Problems Myofascial pain dysfunction syndrome (Acute) Diabetic foot ulcer (Acute) Past Medical History Medical History Neuropathy CAD (coronary artery disease) Anxiety CVA (cerebral vascular accident) Thrombocytopenia Gastroparesis Coronary atherosclerosis Endocarditis Abscess of aortic root Aortic regurgitation Hyperlipidemia Thyroid disease GERD (gastroesophageal reflux disease) Syncope Diabetic foot ulcer Diabetes Family History Family history of problems with anesthesia: No Surgical History Surgical History History of partial ray amputation of second toe of right foot (11/03/23) Hx of toe surgery H/O colonoscopy History of facial surgery Hx of aortic valve replacement Hx of cardiac catheterization H/O right knee surgery Hx of foot surgery History of ankle surgery History of surgery on wrist Hx of cholecystectomy History of Problems with Anesthesia: No Social History Social History (Updated 12/22/23 @ 07:28 by Linda Ramos MD) Are you a primary healthcare facility administrator to a significant other at home: No Do you presently have visiting nurse or other home services: No Patient Tobacco Use Status: Former Tobacco user Substance Use Type: Marijuana Current occupation: RT hand Meds Allergies Allergy/AdvReac Type Severity Reaction Status Date / Time peach [PEACH] Allergy Intermediate COLD SORES Verified 12/22/23 06:26 metformin [METFORMIN] AdvReac Severe NAUSEA & Verified 12/22/23 06:26 VOMITING Home Medications ?Medication ?Instructions ?Recorded ?Confirmed ?Last Taken ?Type atorvastatin 80 mg tablet 80 mg PO BEDTIME 10/23/21 12/22/23 11/02/23 History blood sugar diagnostic (FreeStyle #10 ea 10/23/21 12/22/23 Unknown History Lite Strips) blood-glucose meter (FreeStyle #1 ea 10/23/21 12/22/23 Unknown History Harmony Lite kit) empagliflozin 25 mg tablet 25 mg PO DAILY 10/23/21 12/22/23 12/18/23 History (Jardiance) glipizide 5 mg tablet 10 mg PO BID 10/23/21 12/22/23 11/02/23 History metoprolol succinate 25 mg 25 mg PO BEDTIME 10/23/21 12/22/23 11/03/23 History tablet,extended release 24 hr omeprazole 20 mg capsule,delayed 20 mg PO DAILY 10/23/21 12/22/23 12/22/23 05:00 History release triamcinolone acetonide 0.1 % 1 appl topical BID PRN Wound Care 10/23/21 12/22/23 Unknown History topical cream aspirin 81 mg tablet,delayed 81 mg PO DAILY 11/14/21 12/22/23 Unknown History release (Adult Aspirin Regimen) pioglitazone 15 mg tablet 15 mg PO DAILY 11/14/21 12/22/23 11/02/23 History pregabalin 300 mg capsule (Lyrica) 300 mg PO BID 11/14/21 12/22/23 11/03/23 History acetaminophen 650 mg 650 mg PO Q8H PRN Pain 10/28/23 12/22/23 Unknown History tablet,extended release amoxicillin 500 mg tablet 2,000 mg PO ONCE 10/28/23 12/22/23 Unknown History cyclobenzaprine 10 mg tablet 10 mg PO TID PRN muscle spasm 10/28/23 12/22/23 Unknown History levothyroxine 125 mcg tablet 125 mcg PO DAILY 10/28/23 12/22/23 12/22/23 05:00 History lorazepam 0.5 mg tablet 1 mg PO DAILY PRN Anxiety 10/28/23 12/22/23 Unknown History Exam Pertinent Lab Results Pertinent Lab Results: Laboratory Tests 10/23/23 11/21/23 13:51 09:27 WBC 6.8 Hgb 15.1 Hct 44.6 Plt Count 98 L Sodium 139 Potassium 3.9 Chloride 108 Carbon Dioxide 21 L BUN 17 H Creatinine 1.15 Narrative Narrative: Per cardiac note 10/2023: EKG - SB, Q waves in lead III ECHO EF 60-65%, nml diastolic function, mild conc LVH, paradox setpal motion, stable aortic valve Assessment and Plan Assessment Anesthesia Assessment: Chart Reviewed Final Anesthetic Review Family History of Problems with Anesthesia: No History of Problems with Anesthesia: No Documented by User: Linda Ramos MD 12/22/23 08:11 HPI - Anesthesia Eval Anesthesia Pre-Procedure Meds Is the patient on any of the following meds?: SGLT2 Inhib (Last dose 12/18/23) PMFSH Active Problems Active Problems: All Active Problems Myofascial pain dysfunction syndrome (Acute) Diabetic foot ulcer (Acute) Nausea Past Medical History Medical History Neuropathy CAD (coronary artery disease) Anxiety CVA (cerebral vascular accident) Thrombocytopenia Gastroparesis Coronary atherosclerosis Endocarditis Abscess of aortic root Aortic regurgitation Hyperlipidemia Thyroid disease GERD (gastroesophageal reflux disease) Syncope Diabetic foot ulcer Diabetes Family History Family history of problems with anesthesia: No Surgical History Surgical History History of partial ray amputation of second toe of right foot (11/03/23) Hx of toe surgery H/O colonoscopy History of facial surgery Hx of aortic valve replacement Hx of cardiac catheterization H/O right knee surgery Hx of foot surgery History of ankle surgery History of surgery on wrist Hx of cholecystectomy History of Problems with Anesthesia: No Social History Social History (Updated 12/22/23 @ 07:28 by Linda Ramos MD) Are you a primary healthcare facility administrator to a significant other at home: No Do you presently have visiting nurse or other home services: No Patient Tobacco Use Status: Former Tobacco user Substance Use Type: Marijuana Current occupation: RT hand Meds Allergies Allergy/AdvReac Type Severity Reaction Status Date / Time peach [PEACH] Allergy Intermediate COLD SORES Verified 12/22/23 06:26 metformin [METFORMIN] AdvReac Severe NAUSEA & Verified 12/22/23 06:26 VOMITING Home Medications ?Medication ?Instructions ?Recorded ?Confirmed ?Last Taken ?Type atorvastatin 80 mg tablet 80 mg PO BEDTIME 10/23/21 12/22/23 11/02/23 History blood sugar diagnostic (FreeStyle #10 ea 10/23/21 12/22/23 Unknown History Lite Strips) blood-glucose meter (FreeStyle #1 ea 10/23/21 12/22/23 Unknown History Harmony Lite kit) empagliflozin 25 mg tablet 25 mg PO DAILY 10/23/21 12/22/23 12/18/23 History (Jardiance) glipizide 5 mg tablet 10 mg PO BID 10/23/21 12/22/23 11/02/23 History metoprolol succinate 25 mg 25 mg PO BEDTIME 10/23/21 12/22/23 11/03/23 History tablet,extended release 24 hr omeprazole 20 mg capsule,delayed 20 mg PO DAILY 10/23/21 12/22/23 12/22/23 05:00 History release triamcinolone acetonide 0.1 % 1 appl topical BID PRN Wound Care 10/23/21 12/22/23 Unknown History topical cream aspirin 81 mg tablet,delayed 81 mg PO DAILY 11/14/21 12/22/23 Unknown History release (Adult Aspirin Regimen) pioglitazone 15 mg tablet 15 mg PO DAILY 11/14/21 12/22/23 11/02/23 History pregabalin 300 mg capsule (Lyrica) 300 mg PO BID 11/14/21 12/22/23 11/03/23 History acetaminophen 650 mg 650 mg PO Q8H PRN Pain 10/28/23 12/22/23 Unknown History tablet,extended release amoxicillin 500 mg tablet 2,000 mg PO ONCE 10/28/23 12/22/23 Unknown History cyclobenzaprine 10 mg tablet 10 mg PO TID PRN muscle spasm 10/28/23 12/22/23 Unknown History levothyroxine 125 mcg tablet 125 mcg PO DAILY 10/28/23 12/22/23 12/22/23 05:00 History lorazepam 0.5 mg tablet 1 mg PO DAILY PRN Anxiety 10/28/23 12/22/23 Unknown History Exam Height,Weight and Vital Signs: Height 6 ft 1 in Weight 99.79 kg Vital Signs Temp Pulse Resp BP Pulse Ox O2 Del Method 12/22/23 06:40 97.2 F 52 16 138/60 94 Room Air Pertinent Lab Results Pertinent Lab Results: Laboratory Tests 10/23/23 11/21/23 13:51 09:27 WBC 6.8 Hgb 15.1 Hct 44.6 Plt Count 98 L Sodium 139 Potassium 3.9 Chloride 108 Carbon Dioxide 21 L BUN 17 H Creatinine 1.15 Lab Results 12/22/23 Range/Units 06:43 POC Glucose 142 H (60-115) mg/dL Airway Mallampati Class: III TM Dist: >3cm Neck ROM: Full Loose/Missing/Broken Teeth: Yes (Many missing, many broken teeth) Heart: RRR + extra beats Lungs: CTAB Assessment and Plan Assessment Anesthesia Assessment: Anesthesia Plan Discussed and Chart Reviewed Final Anesthetic Review Family History of Problems with Anesthesia: No History of Problems with Anesthesia: No NPO: Yes ASA Class: III Final Preanesthetic Review: No Changes in Pt Med Stat, Meds/Allgs Chart Reviewed, Consent Obtained/Reviewed and Anes Risks/Benef Reviewed Patient Risk: Intermediate Procedure Risk: Low Assessment/Block/Sedation in SS: Assess/Block/Sedation-SS Anesthetic Plan Anesthetic Plan: GA Disposition: Standard PACU
[2023-12-22 06:27] VITALS: BMI 29.0
[2023-12-22 06:40] VITALS: BP 138/60; PULSE 52; RESP 16; TEMP 36.2; O2SAT 94
[2023-12-22 06:47] LABS: Glucose, Whole Blood 142 mg/dL (60-115)
[2023-12-22] MEDS: Lactated Ringers 1,000 ML 100 ML IVCONT (06:53)
--- NOTE | 2023-12-22 07:29 | MHC.SHP ---
Pre-Procedural Eval Section A - 24 Hr Update-Section A only Date of Service: 12/22/23 The patient is an INPATIENT: No Changes since office visit: Yes Patient answered all questions; No Cold of Flu in the past 2 weeks, No New Medical Problems and No Changes in Medication The patient has been examined within 24 hours of the surgical procedure. The History & Physical has been completed within 30 days and I have reviewed it.: Yes Section B - Complete if H&P > 30 days Chief Complaint: type 2 diabetes,non-pressure chronic ulcer Allergies: Allergies Allergy/AdvReac Type Severity Reaction Status Date / Time peach [PEACH] Allergy Intermediate COLD SORES Verified 12/22/23 06:26 metformin [METFORMIN] AdvReac Severe NAUSEA & Verified 12/22/23 06:26 VOMITING Plan Diagnosis/Plan: Unchanged I have reviewed the history and physical and performed a pertinent physical examination on my patient. No changes have occurred unless specified. Time Spent With Patient Time: Total time managing care of this patient today ____ minutes.
--- NOTE | 2023-12-22 08:20 | P.OP_ITS ---
Operative Note Operative Note Date of Service: 12/22/23 Narrative: Preoperative diagnosis: Nonhealing wound right 2nd toe Postoperative diagnosis: Same Procedure: Revision of partial amputation right 2nd toe Surgeon: Otf Kaiser MD Campaign Management Specialist: Jeanie Angel PA-C Anesthesia: General LMA Indications for procedure: 63-year-old male patient with a prior history of diabetes and prior amputations of toes now presenting following a partial amputation of the right 2nd toe. Patient and returns today for revision of the partial amputation. Operative findings: Healthy-appearing tissue with no evidence of osteomyelitis. Specimen: Revision partial amputation 2nd toe right foot Estimated blood loss: 5 mL Complications: None Procedure details: Patient was brought to the OR placed in a supine position. After administering general anesthesia the patient's right foot was prepped with Betadine and draped in a sterile fashion. A surgical time-out was called the consent confirmed. Patient received preoperative antibiotics and Venodyne boots were in place. Local anesthesia was infiltrated as a digital block. An elliptical incision to include the prior incision was then created using a fishmouth technique. This was carried down into the subcutaneous tissue down to the distal phalanx. The dissection was continued down along the bone using a sharp dissection with a scalpel. The middle phalanx was removed and sent to pathology for further examination. Rongeur was then used to remove the joint space of the proximal phalanx. Hemostasis was assured using electrocautery and light pressure. Wounds were irrigated with saline solution and suctioned dry. Deep dermis was then reapproximated using interrupted 2-0 Polysorb sutures. Skin was closed using skin sirisha. Sterile dressings were then applied. The patient tolerated the procedure well. Sponge, instrument, needle counts reported as correct. The patient was transferred to PACU in stable condition.
[2023-12-22 08:25] VITALS: BP 106/57; PULSE 54; RESP 16; TEMP 36.5; O2SAT 92
[2023-12-22 08:30] VITALS: BP 113/58; PULSE 53; RESP 16; O2SAT 94
[2023-12-22 08:35] VITALS: BP 110/58; PULSE 53; RESP 16; O2SAT 93
[2023-12-22 08:39] VITALS: BP 116/54; PULSE 56; RESP 16; O2SAT 95
[2023-12-22 08:54] VITALS: BP 115/57; PULSE 54; RESP 18; TEMP 36.6; O2SAT 93
== END 2023-12-22 09:25 | disposition home or self-care (01) ==
PROVIDERS: PCP Internal Medicine; Visit Provider Surgery
PROC: (CPT 28825; principal; 2023-12-22 07:30)
DX: E11.621 Type 2 diabetes mellitus with foot ulcer (principal); L97.512 Non-pressure chronic ulcer of other part of right foot with fat layer exposed; G62.9 Polyneuropathy, unspecified; I25.10 Atherosclerotic heart disease of native coronary artery without angina pectoris; I35.0 Nonrheumatic aortic (valve) stenosis; Z95.2 Presence of prosthetic heart valve; E78.5 Hyperlipidemia, unspecified; E03.9 Hypothyroidism, unspecified; D69.6 Thrombocytopenia, unspecified; Z86.73 Personal history of transient ischemic attack (TIA), and cerebral infarction without residual deficits; Z79.01 Long term (current) use of anticoagulants; Z79.82 Long term (current) use of aspirin; Z79.84 Long term (current) use of oral hypoglycemic drugs; Z88.8 Allergy status to other drugs, medicaments and biological substances; Z87.891 Personal history of nicotine dependence
CPT/HCPCS: 28825; 82947; 88305; 88311; J0131; J0690; J2250; J2405; J2704; J2765; J2795; J3010

== ENCOUNTER → 2023-12-22 06:18 | Outpatient (BNV) | payer MEDICARE, MEDICAID, SELFPAY | PROVIDERS: PCP Internal Medicine; Visit Provider Surgery | DX: E11.621 Type 2 diabetes mellitus with foot ulcer (principal); L97.512 Non-pressure chronic ulcer of other part of right foot with fat layer exposed | CPT/HCPCS: 28825 ==

== ENCOUNTER 2023-12-31 14:59 | Outpatient (AMB) | payer MEDICARE, MEDICAID, SELFPAY ==
--- NOTE | 2023-12-31 14:59 | A.OFFVIS_ITS ---
Intake Visit Reasons: S/P revision Rt 2nd toe amp. (Dr. Kaiser pt) Intake Note: This patient presents for post-op assessment status post Revision of partial amputation right 2nd toe. Pt c/o; reports no complaints. Date Pitter Required: No Accompanied by: Spouse Allergies peach [PEACH] Allergy (Intermediate, Verified 12/31/23 15:01) COLD SORES metformin [METFORMIN] Adverse Reaction (Severe, Verified 12/31/23 15:01) NAUSEA & VOMITING HPI HPI S/P revision Rt 2nd toe amp. (Dr. Kaiser pt): Details: He underwent revision of a 2nd toe amputation last December [address] Kaiser because of a nonhealing wound from his previous amputation. He says he is doing well. He denies any complaints . He does have known neuropathy from his diabetes. [facility] Medical History Neuropathy CAD (coronary artery disease) Anxiety CVA (cerebral vascular accident) Thrombocytopenia Gastroparesis Coronary atherosclerosis Endocarditis Abscess of aortic root Aortic regurgitation Hyperlipidemia Thyroid disease GERD (gastroesophageal reflux disease) Syncope Diabetic foot ulcer Diabetes Surgical History Hx of surgical procedure (~12/22/23) History of partial ray amputation of second toe of right foot (11/03/23) Hx of toe surgery H/O colonoscopy History of facial surgery Hx of aortic valve replacement Hx of cardiac catheterization H/O right knee surgery Hx of foot surgery History of ankle surgery History of surgery on wrist Hx of cholecystectomy Social History Are you a primary manager wound care to a significant other at home: No Do you presently have visiting nurse or other home services: No Patient Tobacco Use Status: Former Tobacco user Substance Use Type: Marijuana Current occupation: RT hand Review of Systems Const Denies chills and Denies fever(s) Card Denies chest pain Resp Denies cough Physical Exam Const Other: Looks well, ambulating General: comfortable and no acute distress Resp Effort & Inspection: normal respiratory effort Extrem Other: Amputation site on the 2nd toe right is well healing, not infected, was intact Assessment & Plan Assessment & Plan (1) Diabetic foot ulcer: Comment: Right 2nd toe Code(s): E11.621 - Type 2 diabetes mellitus with foot ulcer; L97.509 - Non-pressure chronic ulcer of other part of unspecified foot with unspecified severity Category: Medical Qualifiers: Diabetic foot ulcer location: toe Diabetes mellitus type: type 2 Laterality: right Non-pressure ulcer stage: with fat layer exposed Qualified Code(s): E11.621 - Type 2 diabetes mellitus with foot ulcer; L97.512 - Non- pressure chronic ulcer of other part of right foot with fat layer exposed Plan: Status post revision of amputation of the 2nd toe on the right by Dr. Kaiser. The incision is healing well. The sirisha are in place. 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 Kaiser in another week for removal his skin sirisha. Coding Level of Care Code New Pt Level 4 (55317) Global (16673) Diagnoses Diabetic ulcer of toe of right foot associated with type 2 diabetes mellitus, with fat layer exposed E11.621; L97.512 Diabetic foot ulcer location: toe Diabetes mellitus type: type 2 Laterality: right Non-pressure ulcer stage: with fat layer exposed
== END 2023-12-31 15:20 | disposition home or self-care (01) ==
PROVIDERS: PCP Internal Medicine; Visit Provider Surgery
DX: E11.621 Type 2 diabetes mellitus with foot ulcer (principal); L97.512 Non-pressure chronic ulcer of other part of right foot with fat layer exposed
CPT/HCPCS: 99024

== ENCOUNTER → 2023-12-31 14:59 | Outpatient (BNVA) | payer MEDICARE, MEDICAID, SELFPAY | PROVIDERS: PCP Internal Medicine; Visit Provider Surgery | DX: E11.65 Type 2 diabetes mellitus with hyperglycemia (principal); E11.40 Type 2 diabetes mellitus with diabetic neuropathy, unspecified; E11.621 Type 2 diabetes mellitus with foot ulcer; L97.512 Non-pressure chronic ulcer of other part of right foot with fat layer exposed; Z79.4 Long term (current) use of insulin | CPT/HCPCS: 99212 ==

== ENCOUNTER 2024-01-08 13:11 | Outpatient (AMB) | payer MEDICARE, MEDICAID, SELFPAY ==
--- NOTE | 2024-01-08 13:18 | A.OFFVIS_ITS ---
Vital Signs 01/08/24 13:19 Height 6 ft 1 in Weight 218 lb 4.122 oz BMI 28.8 Pulse 56 Intake Visit Reasons: 1 week follow up s/p toe amp Intake Note: Patient is seen in office for follow up visit, post revision of partial amputation right 2nd toe. Pt c/o: denies any concerns healing as expected, sirisha looks dry and clean, ready to be removed [employer] W[employer] Marker Required: No Accompanied by: Spouse Allergies peach [PEACH] Allergy (Intermediate, Verified 01/08/24 13:19) COLD SORES metformin [METFORMIN] Adverse Reaction (Severe, Verified 01/08/24 13:19) NAUSEA & VOMITING HPI Comments Details: Patient returns proximally 2 weeks following partial amputation of the right 2nd toe, revision. He feels well and denies any ongoing toe symptoms. [facility] Medical History Neuropathy CAD (coronary artery disease) Anxiety CVA (cerebral vascular accident) Thrombocytopenia Gastroparesis Coronary atherosclerosis Endocarditis Abscess of aortic root Aortic regurgitation Hyperlipidemia Thyroid disease GERD (gastroesophageal reflux disease) Syncope Diabetic foot ulcer Diabetes Surgical History Hx of surgical procedure (~12/22/23) History of partial ray amputation of second toe of right foot (11/03/23) Hx of toe surgery H/O colonoscopy History of facial surgery Hx of aortic valve replacement Hx of cardiac catheterization H/O right knee surgery Hx of foot surgery History of ankle surgery History of surgery on wrist Hx of cholecystectomy Social History Are you a primary assistant child care teacher to a significant other at home: No Do you presently have visiting nurse or other home services: No Patient Tobacco Use Status: Former Tobacco user Substance Use Type: Marijuana Current occupation: RT hand Physical Exam Vital Signs: Last Vital Signs Pulse 56 01/08/24 13:19 BMI result Body Mass Index 28.8 Const General: comfortable Nutritional Appearance: well nourished Orientation/consciousness: patient oriented x3 Resp Effort & Inspection: normal respiratory effort Neuro General: patient oriented x3 Extrem Other: Right 2nd toe wounds are clean, dry, and intact with intact sirisha. 1/2 of the sutures removed and the wounds found to be well healed. Assessment & Plan Assessment & Plan (1) Diabetic foot ulcer: Comment: Right 2nd toe Code(s): E11.621 - Type 2 diabetes mellitus with foot ulcer; L97.509 - Non-pressure chronic ulcer of other part of unspecified foot with unspecified severity Category: Medical Qualifiers: Diabetic foot ulcer location: toe Diabetes mellitus type: type 2 Laterality: right Non-pressure ulcer stage: with fat layer exposed Qualified Code(s): E11.621 - Type 2 diabetes mellitus with foot ulcer; L97.512 - Non- pressure chronic ulcer of other part of right foot with fat layer exposed Plan Patient returns 2 weeks following partial toe amputation revision right 2nd toe. His wounds are clean and intact. 1/2 of the sirisha were removed today and the remainder will be removed in 1 week. He expressed understanding and agrees with the plan. Coding Level of Care Code Global (31861) Diagnoses Diabetic ulcer of toe of right foot associated with type 2 diabetes mellitus, with fat layer exposed E11.621; L97.512 Diabetic foot ulcer location: toe Diabetes mellitus type: type 2 Laterality: right Non-pressure ulcer stage: with fat layer exposed
[2024-01-08 13:19] VITALS: PULSE 56; BMI 28.8
== END 2024-01-08 13:31 | disposition home or self-care (01) ==
PROVIDERS: PCP Internal Medicine; Visit Provider Surgery
DX: E11.621 Type 2 diabetes mellitus with foot ulcer (principal); L97.512 Non-pressure chronic ulcer of other part of right foot with fat layer exposed
CPT/HCPCS: 99024

== ENCOUNTER → 2024-01-08 13:11 | Outpatient (BNVA) | payer MEDICARE, MEDICAID, SELFPAY | PROVIDERS: PCP Internal Medicine; Visit Provider Surgery | DX: E11.621 Type 2 diabetes mellitus with foot ulcer (principal); L97.512 Non-pressure chronic ulcer of other part of right foot with fat layer exposed | CPT/HCPCS: 99212 ==

== ENCOUNTER 2024-01-15 14:49 | Outpatient (AMB) | payer MEDICARE, MEDICAID, SELFPAY ==
--- NOTE | 2024-01-15 14:59 | A.OFFVIS_ITS ---
Vital Signs 01/15/24 15:00 Height 6 ft 1 in Weight 228 lb 4 oz BMI 30.1 BP 122/63 Blood Pressure Location Lt brachial Position Sitting Pulse 65 Intake Visit Reasons: 2 week follow up s/p toe amp Intake Note: Patient is seen in office for 2 weeks follow up visit, post partial toe amputation revision right 2nd toe. Pt c/o: no concerns at the time of visit, remaining sutures removed Hr Leader Required: No Accompanied by: Spouse Allergies peach [PEACH] Allergy (Intermediate, Verified 01/15/24 15:00) COLD SORES metformin [METFORMIN] Adverse Reaction (Severe, Verified 01/15/24 15:00) NAUSEA & VOMITING HPI Comments Details: Patient returns for removal of remaining sirisha. He feels well and denies any ongoing toe symptoms. [facility] Medical History Neuropathy CAD (coronary artery disease) Anxiety CVA (cerebral vascular accident) Thrombocytopenia Gastroparesis Coronary atherosclerosis Endocarditis Abscess of aortic root Aortic regurgitation Hyperlipidemia Thyroid disease GERD (gastroesophageal reflux disease) Syncope Diabetic foot ulcer Diabetes Surgical History Hx of surgical procedure (~12/22/23) History of partial ray amputation of second toe of right foot (11/03/23) Hx of toe surgery H/O colonoscopy History of facial surgery Hx of aortic valve replacement Hx of cardiac catheterization H/O right knee surgery Hx of foot surgery History of ankle surgery History of surgery on wrist Hx of cholecystectomy Social History Are you a primary child caregiver private home to a significant other at home: No Do you presently have visiting nurse or other home services: No Patient Tobacco Use Status: Former Tobacco user Substance Use Type: Marijuana Current occupation: RT hand Physical Exam Vital Signs: Last Vital Signs Pulse 65 01/15/24 15:00 BP 122/63 01/15/24 15:00 BMI result Body Mass Index 30.1 Extrem Other: Right 2nd toe wounds are clean, dry, and intact without redness or discharge. Remaining sirisha removed and wounds found to be well healed. Assessment & Plan Assessment & Plan (1) Diabetic foot ulcer: Comment: Right 2nd toe Code(s): E11.621 - Type 2 diabetes mellitus with foot ulcer; L97.509 - Non-pressure chronic ulcer of other part of unspecified foot with unspecified severity Category: Medical Qualifiers: Diabetic foot ulcer location: toe Diabetes mellitus type: type 2 Laterality: right Non-pressure ulcer stage: with fat layer exposed Qualified Code(s): E11.621 - Type 2 diabetes mellitus with foot ulcer; L97.512 - Non- pressure chronic ulcer of other part of right foot with fat layer exposed Plan Patient is now well healed and remaining sirisha removed. He feels well and denies any ongoing toe symptoms. He should follow up as needed. Coding Level of Care Code Global (05872) Diagnoses Diabetic ulcer of toe of right foot associated with type 2 diabetes mellitus, with fat layer exposed E11.621; L97.512 Diabetic foot ulcer location: toe Diabetes mellitus type: type 2 Laterality: right Non-pressure ulcer stage: with fat layer exposed
[2024-01-15 15:00] VITALS: BP 122/63; PULSE 65; BMI 30.1
== END 2024-01-15 15:24 | disposition home or self-care (01) ==
PROVIDERS: PCP Internal Medicine; Visit Provider Surgery
DX: E11.621 Type 2 diabetes mellitus with foot ulcer (principal); L97.512 Non-pressure chronic ulcer of other part of right foot with fat layer exposed
CPT/HCPCS: 99024

== ENCOUNTER → 2024-01-15 14:49 | Outpatient (BNVA) | payer MEDICARE, MEDICAID, SELFPAY | PROVIDERS: PCP Internal Medicine; Visit Provider Surgery | DX: E11.621 Type 2 diabetes mellitus with foot ulcer (principal); L97.512 Non-pressure chronic ulcer of other part of right foot with fat layer exposed; Z89.421 Acquired absence of other right toe(s) | CPT/HCPCS: 99212 ==

== ENCOUNTER 2024-07-27 07:25 | Outpatient (REF) | payer MEDICARE, MEDICAID, SELFPAY ==
--- OUTSIDE RECORDS SUMMARY | 2024-07-27 07:27 | XMS_ITS | Clinical Summary ---
Author Organization [facility], Address [address] [place] [address] Phone Care Team Providers Care Senior Chemical Engineer Name Role Phone Michael Tracy MD Primary Care Provider [phone] Allergies Active Allergy Reactions Criticality Noted Date Comments Metformin Other (see comments) 08/12/2019 Other Other (see comments) 08/12/2019 Peaches Prunus Persica 02/07/2022 Medications zolpidem (AMBIEN) 5 MG tablet Take 5 mg by mouth at night if needed Active levothyroxine (SYNTHROID, LEVOTHROID) 100 MCG tablet Take 125 mcg by mouth 1 (one) time each day Active pregabalin (LYRICA) 300 MG capsule Take 300 mg by mouth 3 (three) times a day Active omeprazole (PriLOSEC) [address] capsule Take 20 mg by mouth 1 (one) time each day Active pioglitazone (ACTOS) 15 MG tablet Take 30 mg by mouth 1 (one) time each day Active atorvastatin (LIPITOR) 80 MG tablet 12/23/2020 Active aspirin (ST LYSSA) 81 MG EC tablet Take 81 mg by mouth 1 (one) time each day Active metoprolol succinate XL (TOPROL XL) 25 MG 24 hr tablet Take 1 tablet (25 mg total) by mouth 1 (one) time each day Do not crush or chew. 30 tablet 3 04/19/2021 Active LORazepam (ATIVAN) 0.5 MG tablet Take 0.5 mg by mouth every 6 (six) hours if needed for anxiety Active glipiZIDE (GLUCOTROL) 5 MG tablet Take 2 tablets (10 mg total) by mouth in the morning and 2 tablets (10 mg total) in the evening. 360 tablet 3 12/12/2023 08/30/202 5 Active Jardiance 25 MG tablet Take by mouth 1 (one) time each day 03/15/2024 Active Active Problems Problem Noted Date Diagnosed Date Chronic kidney disease, stage 2 (mild) 0 Acute nontraumatic kidney injury Acute tubular necrosis Hyperlipidemia Hypothyroidism Thrombocytopenia Overview (08/12/2019): idiopathic Type 2 diabetes mellitus with kidney complicatio ns Overview (08/12/2019): with diabetic neuropathy, diabetic foot ulcers and wounds Immunizations Immunization Administration Dates Next Due Influenza, Quadrivalent, Preservative Free 01/23 Influenza, Quadrivalent, With Preservative 02/18 Family History Medical History Relation Comments Other Father had quadruple by pass Leukemia Sibling Relation Status Comments Father Sibling Social History Tobacco Use Types Packs/Day Years Used Date Smoking Tobacco: Never Sex and Gender Information Value Date Recorded Sex Assigned at Not on file Legal Sex Male 4:37 PM EST Gender Identity Not on file Sexual Orientation Not on file Last Filed Vital Signs Vital Sign Reading Time Taken Comments Blood Pressure 113/63 02/22/2019 12:00 PM EST Pulse - - Temperature - - Respiratory Rate - - Oxygen Saturation - - Inhaled Oxygen Concentration - - Weight 95.3 kg (210 lb) 02/22/2019 12:00 PM EST Height 185.4 cm (6' 1 ) 02/22/2019 12:00 PM EST Body Mass Index 27.71 02/22/2019 12:00 PM EST Plan of Treatment Health Maintenance Due Date Last Done Comments Colorectal Cancer Screening: Annual FOBT 10/10/2008 Colorectal Cancer Screening: Colonoscopy 10/10/2008 Colorectal Cancer Screening: Sigmoidoscopy 10/10/2008 Pneumococcal Vaccine: 50+ Years (2 of 2 - PCV) 12/29/2013 12/29/2012 Diabetes: Ophthalmology Exam 07/05/2019 Diabetes: Pedal Pulse Checked 07/05/2019 Diabetes: Sensory Foot Exam 07/05/2019 Diabetes: Visual Foot Exam 07/05/2019 Diabetes: Hemoglobin A1C 03/28/2023 023, 02/11/2022, 12/25/2020, Additional history exists Influenza Vaccine (Season Ended) 2024 12/13/2022, 11/29/2022, 01/24/2020, Additional history exists Pneumococcal Vaccine: Peds (0 to 5 Years) and At-Risk Patients (6 to 49 Years) Discontinued 12/29/2012 Hepatitis B Vaccine Aged Out No longe r eligible based on patient's age to complete this topic Procedures Procedure Name Priority Date/Time Associated Diagnosis Comments HEMOGLOBIN A1C Routine 12/27/2022 1:13 PM EDT Chronic kidney disease, stage 2 (mild) from Last 3 Months or Most Recently Relevant to Health Maintenance Results * (ABNORMAL) Hemoglobin A1c (12/27/2022 1:13 PM EDT) Hemoglobin A1C 7.0(H) (4.0-5.6) % [facility] Comment: MONITORING: In known diabetic patients, hemoglobin A1c targets should be discussed with health care provider. DIAGNOSTIC USE: ??The [place] Diabetes Association (ADA) and the World Health Organization (WHO) recommend the use of HbA1c to diagnose diabetes using a threshold of 6.5%. Patients who have an HbA1c between 5.7% and 6.4% are considered at increased risk for developing diabetes in the future. CAUTION: Falsely low HbA1c results may be observed in patients with hemolytic anemia, homozygous forms of abnormal hemoglobin (e.g. SS, CC, SC), , recent blood loss or hemoglobin F greater than 7%. Fructosamine may be used as an alternate test in these cases. REFERENCE: ADA: Standards of Medical Care in Diabetes 2020, The Journal of Clinical and Applied Research and Education Volume 43, Supplement 1 Testing performed or reported by [facility], a Service of [facility], [address] [place] [address] Paul Lyons MD, Solidworks Designer [facility]# [id number] Blood (Blood, Venous) 12/27/2022 1:13 PM EDT 12/27/2022 1:54 PM EDT us Jesus Alberto Mcdaniel MD LAB BLOOD ORDERABLES Final Res ult [facility] from Last 3 Months or Most Recently Relevant to Health Maintenance Insurance Medicare Medicaid [place] Care Teams Senior Chemical Engineer Relationship Specialty Start Date End Date Michael Tracy MD [address] [place] [address] PCP - General 04/24/20
[2024-07-27 08:25] LABS: Estimated Average Glucose 157 mg/dL; Hemoglobin A1C 213.6024 umol/L; Hemoglobin A1c % 7.1 % (<6.0); Total Hemoglobin (HGBA1C) 3917.5175 umol/L
== END 2024-07-27 07:26 | disposition home or self-care (01) ==
LOC: HO.LAB 07:25
PROVIDERS: PCP Internal Medicine; Visit Provider Internal Medicine
DX: E11.9 Type 2 diabetes mellitus without complications (principal)
CPT/HCPCS: 36415; 83036

== ENCOUNTER 2024-10-26 15:05 | Outpatient (AMB) | payer MEDICARE, MEDICAID, SELFPAY ==
--- NOTE | 2024-10-26 15:05 | MHC.PC.OV ---
Vital Signs 10/26/24 15:41 Height 6 ft 0.83 in Weight 220 lb BMI 29.2 BP 107/58 L Respiration 14 Pulse 50 Pulse Source Pulse Oximeter Temp 97.6 F Temp Source Temporal Artery Scan Pulse Oximetry (%) 96 Oxygen Delivery Method Room Air Intake Visit Reasons: establish care Budget And Policy Analyst Required: No Accompanied by: Spouse Allergies peach (PEACH) Allergy (Intermediate, Verified 10/26/24 17:09) COLD SORES metformin (METFORMIN) Adverse Reaction (Severe, Verified 10/26/24 17:09) NAUSEA & VOMITING Medication List - Last Reconciled 10/26/24 by Malaika Renteria PA-C acetaminophen ER 650 mg PO Q8H PRN amoxicillin 2,000 mg PO ONCE aspirin (Adult Aspirin Regimen) 81 mg PO DAILY atorvastatin 80 mg PO BEDTIME blood sugar diagnostic (FreeStyle Lite Strips) As directed blood-glucose meter (FreeStyle [place] Em Lite kit) As directed cyclobenzaprine 10 mg PO TID PRN empagliflozin (Jardiance) 25 mg PO DAILY glipizide 10 mg PO BID levothyroxine 125 mcg PO DAILY lorazepam 1 mg PO DAILY PRN metoclopramide HCl (Reglan) 10 mg PO Q6H PRN metoprolol succinate ER 25 mg PO BEDTIME omeprazole 20 mg PO DAILY pioglitazone 30 mg PO DAILY pregabalin (Lyrica) 300 mg PO BID Tobacco use date assessed: 10/26/24 Fall risk assessment: No Falls in past year Last assessed Fall Risk: 10/26/24 Dental Screening Dental Screen Date: 10/26/24 Did you have a dental visit in the last 12 months?: Yes Did you have a dental problem in the last 6 months where you did not have access to dental care?: No Was dental information given to patient?: Patient has dentist HPI establish care HPI Details The patient is a 64-year-old male presenting for a new patient appointment and management of chronic conditions. The patient reports chronic left shoulder pain for which he takes Tylenol regularly. He has not undergone any surgical intervention for this issue and is scheduled to see an orthopedist at [place]. The patient has a history of diabetes mellitus, managed with Jardiance, glipizide, and pioglitazone. His last hemoglobin A1c was recorded as 7.1 in July. He is also on atorvastatin for hyperlipidemia and takes aspirin for preventative heart care. The patient has a history of gastroparesis, for which he uses Reglan as needed, and hypothyroidism, managed with levothyroxine. He has a history of atrial fibrillation and endocarditis, with a pig valve replacement. He experienced a stroke in the past and is currently on metoprolol for heart rate control. The patient is on dialysis and has undergone amputation of toes due to complications from diabetes, specifically infections and anatomical issues. 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[facility] [facility] Medical History (Updated 10/26/24 @ 17:15 by Malaika Renteria PA-C) Overweight with body mass index (BMI) of 29 to 29.9 in adult History of renal dialysis History of endocarditis Atrial fibrillation Hypothyroidism Hyperlipidemia LDL goal <70 Type 2 diabetes mellitus with hemoglobin A1c goal of less than 7.0% Establishing care with new doctor, encounter for Neuropathy CAD (coronary artery disease) Anxiety CVA (cerebral vascular accident) Thrombocytopenia Gastroparesis Coronary atherosclerosis Endocarditis Abscess of aortic root Aortic regurgitation Hyperlipidemia Thyroid disease GERD (gastroesophageal reflux disease) Syncope Diabetic foot ulcer Diabetes Surgical History (Updated 10/26/24 @ 17:14 by Malaika Renteria PA-C) History of partial amputation of toe of right foot Hx of surgical procedure (~12/22/23) History of partial ray amputation of second toe of right foot (11/03/23) Hx of toe surgery H/O colonoscopy History of facial surgery Hx of aortic valve replacement Hx of cardiac catheterization H/O right knee surgery Hx of foot surgery History of ankle surgery History of surgery on wrist Hx of cholecystectomy Family History Father Heart problem Mother Heart problem Social History Housing: House Are you a primary ambulatory care coordinator to a significant other at home: No Do you presently have visiting nurse or other home services: No Alcohol intake: current Alcohol intake frequency: does not drink Patient Tobacco Use Status: Former Tobacco user Substance Use Type: Marijuana service: Yes Current occupational status: retired Cognitive needs: No Hearing needs: No Vision needs: Yes Questionnaire PHQ-9 Over the last 2 weeks, how often have you been bothered by any of the following problems? 1. Little interest or pleasure in doing things: not at all 2. Feeling down, depressed, or hopeless: not at all 3. Trouble falling or staying asleep, or sleeping too much: not at all 4. Feeling tired or having little energy: not at all 5. Poor appetite or overeating: not at all 6. Feeling bad about yourself - or that you are a failure or have let yourself or your family down: not at all 7. Trouble concentrating on things, such as reading the newspaper or watching television: not at all 8. Moving or speaking so slowly that other people could have noticed. Or the opposite - being so fidgety or restless that you have been moving around a lot more than usual: not at all 9. Thoughts that you would be better off or of hurting yourself in some way: not at all Total score: 0 Depression Screening Interpretation: Negative Depression Screening Done: Yes 66633 - PHQ-9 Billing: Yes Source: Developed by Drs. Vladimir Thomas, Hetal Rosas, Josemanuel Mims and colleagues, with an educational leonard from [employer]. Thrive Questionnaire Date Thrive assessed: 10/26/24 I am a: Patient What is your living situation today?: I have a steady place to live Within the past 12 months, did the food you bought not last and you didn't have the money to get more?: Never true Within the past 12 months, did you worry whether your food would run out before you got money to buy more?: Never true Do you have trouble paying for medicines?: No Do you have trouble getting transportation to medical appointments?: No Do you have trouble paying your heating and electricity bill?: No Do you have trouble taking care of your child, family member or friend?: No Do you have trouble with day-to-day activities such as bathing, preparing meals, shopping, managing finances, etc.?: No Are you currently unemployed and looking for a job?: No Are you interested in more education?: No Please select the resources that you would like help with: None THRIVE Score: 0 AUDIT C Alcohol Use Questionnaire (AUDIT-C) 1. How often do you have a drink containing alcohol?: Never 3. How often do you have six or more drinks on one occasion?: Never Total Score: 0 Score Reviewed/Action Taken: No MAYKEL-7 AMB Questionnaire MAYKEL-7 Date MAYKEL - 7 assessed: 10/26/24 Feeling nervous, anxious, or on edge: 1 = Several days Not being able to stop or control worryin = Not at all Worrying too much about different things: 0 = Not at all Trouble relaxin = Not at all Being so restless that it is hard to sit still: 0 = Not at all Becoming easily annoyed or irritable: 1 = Several days Feeling afraid as if something awful might happen: 0 = Not at all Total MAYKEL-7 score (0-4 normal; 5-9 mild; 10-14 moderate; 15-21 severe): 2 Source: Developed by Drs. Vladimir Thomas, Hetal Rosas, Josemanuel Mims and colleagues, with an educational leonard from [employer]. MAYKEL-7 Assessment Billing MAYKEL-7 Assessment Tool: MAYKEL-7 Assessment 87424 Review of Systems Const Details: - Musculoskeletal: Reports chronic left shoulder pain - Endocrine: Reports diabetes mellitus, managed with medication - Gastrointestinal: Reports gastroparesis, managed with Reglan as needed - Cardiovascular: Reports history of atrial fibrillation and endocarditis - Renal: Reports being on dialysis Physical exam (Primary Care) Vital Signs: Last Vital Signs Temp 97.6 F 10/26/24 15:41 Pulse 50 10/26/24 15:41 Resp 14 10/26/24 15:41 BP 107/58 L 10/26/24 15:41 Pulse Ox 96 10/26/24 15:41 Oxygen Delivery Method Room Air 10/26/24 15:41 Care Plan Goal for BP management: <140/90 at Goal BMI result Body Mass Index 29.2 BMI Assessment/Plan discussion: High BMI High, discussed plan: lifestyle, weight reduction, dietary, physical activity and alcohol moderation Tobacco/Smoking Status: Tobacco use Status Tobacco use date assessed 10/26/24 10/26/24 15:09 Patient Tobacco Use Status Former Tobacco user 10/26/24 15:58 PHQ-9: PHQ-9 Score PHQ-9: Total score 0 10/26/24 15:58 Depression Screening Interpretation: Negative Thrive Assessment: Date of Thrive Assessment Date Thrive assessed 10/26/24 10/26/24 15:09 Const Other: Appearance: Alert. Oriented X3. No acute distress. Head: Normal external exam. Normocephalic. Atraumatic. Eyes: Pupils are equal, round, and reactive to light. Extraocular movements intact. Conjunctiva and sclera normal. Eyelids normal. Ears: External auditory canal normal. Tympanic membranes normal. Throat: Pharynx normal. Uvula midline. Moist mucous membranes. Neck: Normal inspection. Neck supple. Full range of motion. Cardiovascular: Normal heart rate and rhythm. Heart sound normal. No murmurs noted. Pulses normal throughout. Respiratory: No respiratory distress. Painless inspiration. Breath sounds normal. No wheezes/rales/rhonchi noted. Chest nontender. No accessory muscle usage noted or decreased air movement noted. Abdomen: Soft and nontender. Back: No costovertebral angle tenderness. Full range of motion noted. Skin: Skin warm and dry. Normal skin color. Normal skin turgor. No rashes/lesions/lacerations noted. Extremities: No lower extremity edema. Extremities exhibit normal range of motion. Notable for right second and third toe amputation due to diabetes-related complications. Neuro: Oriented X 3. No motor deficit. No sensory deficit. Reflexes normal. Results Reviewed Results Reviewed: - Labs: Hemoglobin A1c was 7.1 in July Coding Level of Care Code New Pt Level 5 (78509) Complex EM visit Add On G2211 Diagnoses Establishing care with new doctor, encounter for Z76.89 Type 2 diabetes mellitus with hemoglobin A1c goal of less than 7.0% E11.9 Hyperlipidemia LDL goal <70 E78.5 Hypothyroidism E03.9 Atrial fibrillation I48.91 History of endocarditis Z86.79 History of partial amputation of toe of right foot Z89.421 Overweight with body mass index (BMI) of 29 to 29.9 in adult E66.3; Z68.29 Additional Codes PHQ-9 - 10455 - PHQ-9 Billing: Yes ([id number]) MAYKEL-7 Assessment Billing - MAYKEL-7 Assessment Tool: MAYKEL-7 Assessment 43662 ([id number]) Assessment & Plan Assessment & Plan (1) Establishing care with new doctor, encounter for: Code(s): Z76.89 - Persons encountering health services in other specified circumstances Category: Medical (2) Type 2 diabetes mellitus with hemoglobin A1c goal of less than 7.0%: Code(s): E11.9 - Type 2 diabetes mellitus without complications Category: Medical Plan: The patient's diabetes mellitus is managed with Jardiance, glipizide, and pioglitazone. His last hemoglobin A1c was 7.1 in July. A follow-up A1c test is planned to monitor glycemic control. Condition is chronic and stable will continue to monitor. Condition is chronic and stable continue to monitor. (3) Hyperlipidemia LDL goal <70: Code(s): E78.5 - Hyperlipidemia, unspecified Category: Medical Plan: The patient is on atorvastatin for hyperlipidemia management. Regular lipid panel monitoring is recommended to assess treatment efficacy. Condition is chronic and stable continue to monitor. (4) Hypothyroidism: Code(s): E03.9 - Hypothyroidism, unspecified Category: Medical Plan: Hypothyroidism is managed with levothyroxine. Thyroid function tests should be monitored periodically to ensure adequate control. Condition is chronic and stable continue to monitor. (5) Atrial fibrillation: Code(s): I48.91 - Unspecified atrial fibrillation Category: Medical Plan: The patient has a history of atrial fibrillation and is on metoprolol for heart rate control. Regular follow-up is necessary to monitor cardiac status. Condition is chronic and stable continue to monitor. (6) History of endocarditis: Code(s): Z86.79 - Personal history of other diseases of the circulatory system Category: Medical Plan: The patient has a history of endocarditis with a pig valve replacement. Continued monitoring and follow-up with cardiology are advised. Condition is chronic and stable continue to monitor. (7) History of partial amputation of toe of right foot: Code(s): Z89.421 - Acquired absence of other right toe(s) Category: Surgical Plan: The patient has undergone amputation of toes due to diabetes-related complications. Continued monitoring for foot health and wound care is essential. Condition is chronic and stable continue to monitor. (8) Overweight with body mass index (BMI) of 29 to 29.9 in adult: Code(s): E66.3 - Overweight; Z68.29 - Body mass index [BMI] 29.0-29.9, adult Category: Medical Plan: Patient to improve diet and exercise regimen. Condition is chronic and stable continue to monitor. Plan Plan Patient was informed and verbally consented to the use of an ambient scribe for clinic note documentation during this visit. 1. Diabetes Mellitus The patient's diabetes mellitus is managed with Jardiance, glipizide, and pioglitazone. His last hemoglobin A1c was 7.1 in July. A follow-up A1c test is planned to monitor glycemic control. 2. Hyperlipidemia The patient is on atorvastatin for hyperlipidemia management. Regular lipid panel monitoring is recommended to assess treatment efficacy. 3. Gastroparesis Gastroparesis is managed with Reglan as needed. The patient should continue monitoring symptoms and adjust medication use accordingly. 4. Hypothyroidism Hypothyroidism is managed with levothyroxine. Thyroid function tests should be monitored periodically to ensure adequate control. 5. Atrial Fibrillation The patient has a history of atrial fibrillation and is on metoprolol for heart rate control. Regular follow-up is necessary to monitor cardiac status. 6. Endocarditis The patient has a history of endocarditis with a pig valve replacement. Continued monitoring and follow-up with cardiology are advised. 7. Amputation Of Toes Due To Diabetes The patient has undergone amputation of toes due to diabetes-related complications. Continued monitoring for foot health and wound care is essential. During the visit, we discussed the management of the patient's chronic conditions, including diabetes, hyperlipidemia, and hypothyroidism. We reviewed the importance of regular monitoring and follow-up appointments to ensure optimal control of these conditions. The patient was advised to obtain necessary lab work and follow up with specialists as needed. We also discussed the need for continued dialysis and the importance of foot care due to previous amputations. Orders: Orders PSA,Total (Free>4and<10) Today Z00.00 - Encounter for general adult medical examination without abnormal findings Vitamin D 25-OH Total Today Z00.00 - Encounter for general adult medical examination without abnormal findings Liver Panel Today Z00.00 - Encounter for general adult medical examination without abnormal findings Complete Blood Count Auto Diff Today Z00.00 - Encounter for general adult medical examination without abnormal findings Comprehensive [place]. Panel Fast Today Z00.00 - Encounter for general adult medical examination without abnormal findings Lipid Panel Today Z00.00 - Encounter for general adult medical examination without abnormal findings Hemoglobin A1c Today Z00.00 - Encounter for general adult medical examination without abnormal findings TSH reflex Free T4 Today Z00.00 - Encounter for general adult medical examination without abnormal findings Vitamin B12 and Folate Today Z00.00 - Encounter for general adult medical examination without abnormal findings Magnesium Today Z00.00 - Encounter for general adult medical examination without abnormal findings Patient Instructions: - Schedule follow-up appointments for diabetes management and other chronic conditions. - Obtain necessary lab work, including hemoglobin A1c and lipid panel. - Continue current medications as prescribed and monitor for any side effects. - Follow up with specialists, including nephrology and cardiology, as recommended. - Maintain regular foot care and monitor for any signs of infection or complications.
[2024-10-26 15:41] VITALS: BP 107/58; PULSE 50; RESP 14; TEMP 36.4; O2SAT 96; BMI 29.2
--- OUTSIDE RECORDS SUMMARY | 2024-10-26 16:21 | XMS_ITS | Patient Health Record ---
Author Organization [facility] Address [address] [place] [id number] Care Team Providers Care Academic Hospitalist Name Role Phone Demarcus (RETIRED) Michael SETHI Primary Care Provider Unavailable Demetrius Ernst Jr Unavailable Reason For Referral No Information Medications Medication SIG (Take, Route, Frequency, Duration) Notes Start Date End Date Status Cyclobenzaprine HCl 10MG PRN Active traMADol HCl 50MG PRN Ac tive Pravastatin Sodium 80mg Active Sulindac 200mg PRN Activ e Levothyroxine Sodium 0.1mg Active Omeprazole 20mg Acti ve glipiZIDE 10mg Activ e Actos 15mg Active Lyrica 300mg Active traZODone HCl 50mg PRN A ctive Problems Problem Type SNOMED Code ICD Code Onset Dates Problem Status W/U Status Risk Notes Problem Esophageal reflux (612090278) Esophageal reflux (530.81) Active confirmed Problem Gastroparesis (179335813) Gastroparesis (536.3) Active confirmed Plan Of Treatment No Information Insurance Providers Payer Name Payer Address Payer Phone Subscriber Number Group Number Insured Name Patient Relationship to Insured Coverage Start Date Coverage End Date MEDICARE OF [employer] [place] [address] [place] [id number] NILE OSUNA Self - patient is the insured Medical (General) History Medical History History ICD Code GERD diabetes mellitus elevated Cholesterol colon polyps diverticulosis erectile dysfunction Hypothyroidism Denies [place],CVA,Lung disease,renal disease Surgical History Surgery Date(Month/Year) wrist surgery
--- OUTSIDE RECORDS SUMMARY | 2024-10-26 16:21 | XMS_ITS | Clinical Summary ---
Author Organization [facility], Address [address] [place] [address] Phone Care Team Providers Care Painting Instructor Name Role Phone Michael Tracy MD Primary Care Provider Allergies Active Allergy Reactions Criticality Noted Date [...] 02/11/2022, 12/25/2020, Additional history exists Influenza Vaccine (#1) 2024 3, 11/29/2022, 01/24/2020, Additional history exists Pneumococcal Vaccine: [...] PM EDT) Hemoglobin A1C 7.0(H) (4.0-5.6) % [facility] Comment: MONITORING: In known diabetic patients, hemoglobin A1c targets should be discussed with health care provider. DIAGNOSTIC USE: The [place] Diabetes [employer] (ADA) and the World Health [...] Supplement 1 Testing performed or reported by [facility], a Service of [facility], [address] [place] [address] Paul Lyons MD, Painter Set [facility]# [id number] Blood specimen (specimen) Venous blood / Unknown 12/27/2022 1:13 PM EDT 12/27/2022 1:54 PM EDT us Jesus Alberto Mcdaniel MD LAB BLOOD ORDERABLES Final Res ult [facility] from Last 3 Months or Most Recently Relevant to Health Maintenance Insurance Medicare Medicaid [place] Care Teams Painting Instructor Relationship Specialty Start Date End Date Michael Tracy MD [address] [place] [address] PCP - General 04/24/20
== END 2024-10-26 16:22 | disposition home or self-care (01) ==
LOC: HO.HMCSH 15:05
PROVIDERS: PCP Internal Medicine; Visit Provider Physician Assistant Medical
DX: E11.9 Type 2 diabetes mellitus without complications (principal); E78.5 Hyperlipidemia, unspecified; E03.9 Hypothyroidism, unspecified; I48.91 Unspecified atrial fibrillation; Z86.79 Personal history of other diseases of the circulatory system; Z89.421 Acquired absence of other right toe(s); E66.3 Overweight; Z68.29 Body mass index [BMI] 29.0-29.9, adult

== ENCOUNTER → 2024-10-26 15:05 | Outpatient (BNVA) | payer MEDICARE, SELFPAY | PROVIDERS: PCP Internal Medicine; Visit Provider Physician Assistant Medical | DX: Z76.89 Persons encountering health services in other specified circumstances (principal); E11.9 Type 2 diabetes mellitus without complications; E78.5 Hyperlipidemia, unspecified; E03.9 Hypothyroidism, unspecified; I48.91 Unspecified atrial fibrillation; Z86.79 Personal history of other diseases of the circulatory system; E66.3 Overweight; Z68.29 Body mass index [BMI] 29.0-29.9, adult; Z71.3 Dietary counseling and surveillance; Z89.421 Acquired absence of other right toe(s) | CPT/HCPCS: 96127; 99202 ==

== ENCOUNTER 2025-01-21 09:39 | Outpatient (REF) | payer MEDICARE, SELFPAY ==
--- OUTSIDE RECORDS SUMMARY | 2025-01-21 10:17 | XMS_ITS | Patient Health Record ---
Author Organization [facility] Address [address] [place] [id number] Care Team Providers Care Telegraph Mechanic Name Role Phone Demarcus (RETIRED) Michael SETHI [...] W/U Status Risk Notes Problem Esophageal reflux ([id number]) Esophageal reflux (530.81) Active confirmed Problem Gastroparesis (624949659) Gastroparesis (536.3) Active confirmed Plan Of Treatment No Information Insurance Providers Payer Name Payer Address Payer Phone Subscriber Number Group Number Insured Name Patient Relationship to Insured Coverage Start Date Coverage End Date MEDICARE OF [employer] [address] [place] [id number] NILE OSUNA Self - patient is the insured Medical (General) History Medical History History ICD Code GERD diabetes mellitus elevated Cholesterol colon polyps diverticulosis erectile dysfunction Hypothyroidism Denies [place],CVA,Lung disease,renal disease Surgical History Surgery Date(Month/Year) wrist surgery
[2025-01-21 11:00] LABS: MANUAL DIFF FLAG NO
[2025-01-21 11:15] LABS: Hematocrit 46.7 % (42.0-52.0); Hemoglobin 15.5 g/dl (14.0-18.0); Imm Gran Abs Auto 0.04 X10*3/uL (0.00-0.03); Imm Gran Pct Auto 0.6 % (0.0-0.4); Lymphocytes Absolute Auto 2.1 X10*3/uL (1.2-4.9); Mean Corpuscular HGB Conc 33.2 g/dl (31.0-36.0); Mean Corpuscular Hemoglobin 30.8 pg (27.0-33.0); Mean Corpuscular Volume 92.7 fL (80.0-98.0); NRBC Abs Auto 0.000 X10*3/uL (0.0-0.012); NRBC Pct Auto 0.0 /100WBC (0.0-0.2); Red Blood Count 5.04 X10*6/uL (4.60-5.80); White Blood Count 6.2 X10*3/uL (4.8-10.8)
[2025-01-21 11:16] LABS: Platelet Count 99 X10*3/uL (160-400)
[2025-01-21 11:53] LABS: PSA,Total (Free>4and<10) 0.62 ng/mL (0.00-4.00)
[2025-01-21 12:07] LABS: Alanine Aminotransferase 25 U/L (0-40); Albumin Level 4.4 g/dL (3.5-5.0); Alkaline Phosphatase 59 U/L (39-117); Anion Gap 14 (12-20); Aspartate Amino Transferase 27 U/L (5-37); Blood Urea Nitrogen 15 mg/dL (9-16); Calcium 9.2 mg/dL (8.4-10.2); Carbon Dioxide 22 mmol/L (22-29); Chloride 109 mmol/L (96-108); Cholesterol 169 mg/dL (<200); Estimated Glomerular Filt Rate > 60; HDL Cholesterol 32 mg/dL (>40); Magnesium 2.1 mg/dL (1.6-2.6); Potassium 4.6 mmol/L (3.3-5.1); Sodium 140 mmol/L (135-145); Total Protein 7.1 g/dL (6.5-8.0); Triglycerides 256 mg/dL (<150)
[2025-01-21 12:15] LABS: Folate 9.9 ng/mL (> or = 4.0); Vitamin B12 297 pg/mL (200-900)
== END 2025-01-21 09:40 | disposition home or self-care (01) ==
LOC: HO.WFDLDS 09:39
PROVIDERS: Visit Provider Physician Assistant Medical
DX: Z00.00 Encounter for general adult medical examination without abnormal findings (principal); Z12.5 Encounter for screening for malignant neoplasm of prostate; Z13.6 Encounter for screening for cardiovascular disorders; Z13.1 Encounter for screening for diabetes mellitus; Z13.29 Encounter for screening for other suspected endocrine disorder
CPT/HCPCS: 36415; 80053; 80061; 80076; 82248; 82306; 82607; 82746; 83036; 83735; 84153; 84443; 85025

== ENCOUNTER 2025-02-18 14:59 | Outpatient (AMB) | payer MEDICARE, SELFPAY ==
[2025-02-18 15:03] VITALS: BP 100/56; PULSE 55; RESP 14; TEMP 36.8; O2SAT 97; BMI 29.6
--- NOTE | 2025-02-18 15:03 | MHC.PC.OV ---
Vital Signs 02/18/25 15:03 Height 6 ft 0.83 in Weight 223 lb BMI 29.6 BP 100/56 L Blood Pressure Location Lt brachial Position Sitting Respiration 14 Pulse 55 Pulse Source Pulse Oximeter Temp 98.2 F Temp Source Temporal Artery Scan Pulse Oximetry (%) 97 Oxygen Delivery Method Room Air Intake Visit Reasons: Diabetic follow up Trust Evaluation Supervisor Required: No Accompanied by: Spouse Allergies peach (PEACH) Allergy (Intermediate, Verified 02/18/25 16:05) COLD SORES metformin (METFORMIN) Adverse Reaction (Severe, Verified 02/18/25 16:05) NAUSEA & VOMITING Medication List - Last Reconciled 02/18/25 by Malaika Renteria PA-C acetaminophen ER 650 mg PO Q8H PRN amoxicillin 2,000 mg PO ONCE aspirin (Adult Aspirin Regimen) 81 mg PO DAILY atorvastatin 80 mg PO BEDTIME blood sugar diagnostic (FreeStyle Lite Strips) As directed blood-glucose meter (FreeStyle [place] Lite kit) As directed cyclobenzaprine 10 mg PO TID PRN empagliflozin (Jardiance) 25 mg PO DAILY glipizide 10 mg PO BID levothyroxine 125 mcg PO DAILY lorazepam 1 mg PO DAILY PRN Lyrica (pregabalin) 300 mg PO BID 90 days NS metoclopramide HCl (Reglan) 10 mg PO Q6H PRN metoprolol succinate ER 25 mg PO BEDTIME omeprazole 20 mg PO DAILY pioglitazone 30 mg PO DAILY Tobacco use date assessed: 10/26/24 Dental Screening Dental Screen Date: 10/26/24 HPI Diabetic follow up HPI Details The patient is a 64-year-old male presenting for a follow-up visit for his diabetes. His hemoglobin A1c has been trending upward, with a result of 7.1% in July, 7.2% one month ago, and 7.4% today. His current medication regimen for diabetes includes Jardiance 25 mg, glipizide 10 mg twice daily, and pioglitazone 30 mg. The patient acknowledges a diet high in carbohydrates, specifically mentioning he eats a lot of bread, which he believes contributes to his elevated blood sugar. A urine microalbumin test, intended to monitor his kidney function in relation to his diabetes, was not collected at a previous visit to a different office despite an order being in place. [place] History - Diet: Reports eating sweets and a lot of bread. - Exercise: The patient reports he used to work out a lot. [facility] Medical History History of partial ray amputation of second toe of right foot (11/03/23) Overweight with body mass index (BMI) of 29 to 29.9 in adult History of renal dialysis History of endocarditis Atrial fibrillation Hypothyroidism Hyperlipidemia LDL goal <70 Type 2 diabetes mellitus with hemoglobin A1c goal of less than 7.0% Establishing care with new doctor, encounter for Neuropathy CAD (coronary artery disease) Anxiety CVA (cerebral vascular accident) Thrombocytopenia Gastroparesis Coronary atherosclerosis Endocarditis Abscess of aortic root Aortic regurgitation Hyperlipidemia Thyroid disease GERD (gastroesophageal reflux disease) Syncope Diabetic foot ulcer Diabetes Surgical History History of partial amputation of toe of right foot Hx of surgical procedure (~12/22/23) Hx of toe surgery H/O colonoscopy History of facial surgery Hx of aortic valve replacement Hx of cardiac catheterization H/O right knee surgery Hx of foot surgery History of ankle surgery History of surgery on wrist Hx of cholecystectomy Family History Father Heart problem Mother Heart problem Social History Housing: House Are you a primary home health care coordinator to a significant other at home: No Do you presently have visiting nurse or other home services: No Alcohol intake: current Alcohol intake frequency: does not drink Patient Tobacco Use Status: Former Tobacco user Substance Use Type: Marijuana service: Yes Current occupational status: retired Cognitive needs: No Hearing needs: No Vision needs: Yes Questionnaire PHQ-9 Over the last 2 weeks, how often have you been bothered by any of the following problems? 1. Little interest or pleasure in doing things: not at all 2. Feeling down, depressed, or hopeless: not at all 3. Trouble falling or staying asleep, or sleeping too much: not at all 4. Feeling tired or having little energy: not at all 5. Poor appetite or overeating: not at all 6. Feeling bad about yourself - or that you are a failure or have let yourself or your family down: not at all 7. Trouble concentrating on things, such as reading the newspaper or watching television: not at all 8. Moving or speaking so slowly that other people could have noticed. Or the opposite - being so fidgety or restless that you have been moving around a lot more than usual: not at all 9. Thoughts that you would be better off or of hurting yourself in some way: not at all Total score: 0 Depression Screening Interpretation: Negative Depression Screening Done: Yes 77347 - PHQ-9 Billing: Yes Source: Developed by Drs. Vladimir Thomas, Hetal Rosas, Josemanuel Mims and colleagues, with an educational leonard from [employer]. Thrive Questionnaire Date Thrive assessed: 10/26/24 I am a: Patient What is your living situation today?: I have a steady place to live Within the past 12 months, did the food you bought not last and you didn't have the money to get more?: Never true Within the past 12 months, did you worry whether your food would run out before you got money to buy more?: Never true Do you have trouble paying for medicines?: No Do you have trouble getting transportation to medical appointments?: No Do you have trouble paying your heating and electricity bill?: No Do you have trouble taking care of your child, family member or friend?: No Do you have trouble with day-to-day activities such as bathing, preparing meals, shopping, managing finances, etc.?: No Are you currently unemployed and looking for a job?: No Are you interested in more education?: No Please select the resources that you would like help with: None THRIVE Score: 0 AUDIT C Alcohol Use Questionnaire (AUDIT-C) 1. How often do you have a drink containing alcohol?: Never 3. How often do you have six or more drinks on one occasion?: Never Total Score: 0 Score Reviewed/Action Taken: No MAYKEL-7 AMB Questionnaire MAYKEL-7 Date MAYKEL - 7 assessed: 10/26/24 Feeling nervous, anxious, or on edge: 1 = Several days Not being able to stop or control worryin = Not at all Worrying too much about different things: 0 = Not at all Trouble relaxin = Not at all Being so restless that it is hard to sit still: 0 = Not at all Becoming easily annoyed or irritable: 1 = Several days Feeling afraid as if something awful might happen: 0 = Not at all Total MAYKEL-7 score (0-4 normal; 5-9 mild; 10-14 moderate; 15-21 severe): 2 Source: Developed by Drs. Vladimir Thomas, Hetal Rosas, Josemanuel Mims and colleagues, with an educational leonard from [employer]. MAYKEL-7 Assessment Billing MAYKEL-7 Assessment Tool: MAYKEL-7 Assessment 90615 Review of Systems Const All systems reviewed & are unremarkable except as noted in HPI and below Physical exam (Primary Care) Vital Signs: Last Vital Signs Temp 98.2 F 02/18/25 15:03 Pulse 55 02/18/25 15:03 Resp 14 02/18/25 15:03 BP 100/56 L 02/18/25 15:03 Pulse Ox 97 02/18/25 15:03 Oxygen Delivery Method Room Air 02/18/25 15:03 Care Plan Goal for BP management: <140/90 at Goal BMI result Body Mass Index 29.6 BMI Assessment/Plan discussion: High BMI High, discussed plan: lifestyle, weight reduction, dietary, physical activity, alcohol moderation and other Tobacco/Smoking Status: Tobacco use Status Tobacco use date assessed 10/26/24 02/18/25 15:06 Patient Tobacco Use Status Former Tobacco user 02/18/25 15:06 PHQ-9: PHQ-9 Score PHQ-9: Total score 0 02/18/25 15:33 Depression Screening Interpretation: Negative Thrive Assessment: Date of Thrive Assessment Date Thrive assessed 10/26/24 02/18/25 15:06 Const Other: Appearance: Alert. Oriented X3. No acute distress. Head: Normal external exam. Normocephalic. Atraumatic. Eyes: Pupils are equal, round, and reactive to light. Extraocular movements intact. Conjunctiva and sclera normal. Eyelids normal. Throat: Pharynx normal. Uvula midline. Moist mucous membranes. Neck: Normal inspection. Neck supple. Full range of motion. Cardiovascular: Normal heart rate and rhythm. Respiratory: No respiratory distress. Painless inspiration. Back: Full range of motion noted. Skin: Skin warm and dry. Normal skin color. Extremities: Extremities exhibit normal range of motion. Results AMB Hemoglobin A1c AMB Hemoglobin A1c 7.4 % Last Edit by ASHELY Lebron on 02/18/25 15:36 Results Reviewed Results Reviewed: Laboratory Last Values Hgb A1c (Clinic) 7.4 % (4.0-6.0) H 02/18/25 15:32 - Labs: - Hemoglobin A1c: 7.4% today. - Prior Labs: - Hemoglobin A1c was 7.2% one month ago and 7.1% in July. Coding Level of Care Code Est Pt Level 4 (57062) Complex EM visit Add On G2211 Diagnoses Type 2 diabetes mellitus with hemoglobin A1c goal of less than 7.0% E11.9 Additional Codes MAYKEL-7 Assessment Billing - MAYKEL-7 Assessment Tool: MAYKEL-7 Assessment 41664 ([id number]) PHQ-9 - 30207 - PHQ-9 Billing: Yes ([id number]) Assessment & Plan Assessment & Plan (1) Type 2 diabetes mellitus with hemoglobin A1c goal of less than 7.0%: Code(s): E11.9 - Type 2 diabetes mellitus without complications Category: Medical Plan: The patient's glycemic control is worsening, as evidenced by a rising hemoglobin A1c, which is currently 7.4%. The patient will continue his current medication regimen of Jardiance 25 mg, glipizide 10 mg twice daily, and pioglitazone 30 mg. The patient declined the addition of any new medications, including injectables, and expressed confidence in lowering his A1c through dietary changes, specifically by reducing bread intake. A follow-up visit is scheduled in three months to re-evaluate his glycemic control. A urine microalbumin test is needed for annual screening of diabetic kidney disease to check for proteinuria and glucosuria. A previous attempt to collect the sample at another facility was unsuccessful. The test will be reordered, and the patient was advised to submit a urine sample. Plan Plan Patient was informed and verbally consented to the use of an ambient scribe for clinic note documentation during this visit. 1. Type 2 Diabetes Mellitus The patient's glycemic control is worsening, as evidenced by a rising hemoglobin A1c, which is currently 7.4%. The patient will continue his current medication regimen of Jardiance 25 mg, glipizide 10 mg twice daily, and pioglitazone 30 mg. The patient declined the addition of any new medications, including injectables, and expressed confidence in lowering his A1c through dietary changes, specifically by reducing bread intake. A follow-up visit is scheduled in three months to re-evaluate his glycemic control. 2. Diabetic Kidney Disease Screening A urine microalbumin test is needed for annual screening of diabetic kidney disease to check for proteinuria and glucosuria. A previous attempt to collect the sample at another facility was unsuccessful. The test will be reordered, and the patient was advised to submit a urine sample. I discussed with the patient that his hemoglobin A1c has increased to 7.4%, up from 7.2% last month. We discussed his diet, particularly his high bread consumption, as a likely contributor. The patient declined to add any new medications, including injectables, stating he can lower his A1c through diet. I also explained the necessity of a urine microalbumin test to screen for kidney problems related to his diabetes, as this is required annually and was not completed previously. I advised a follow-up appointment in three months to monitor his progress. Orders: Orders AMB Hemoglobin A1c Today E11.9 - Type 2 diabetes mellitus without complications Microalbumin, Random (w Creat) Today E11.9 - Type 2 diabetes mellitus without complications Patient Instructions: - Your A1c, which measures your average blood sugar, has gone up to 7.4. - Try to cut back on eating bread, as this can raise your blood sugar. - Continue taking your current diabetes medications (Jardiance, glipizide, and pioglitazone) as prescribed. - A urine test to check your kidney health is needed. - Please schedule a follow-up appointment in three months.
== END 2025-02-18 15:49 | disposition home or self-care (01) ==
LOC: HO.HMCSH 15:00
PROVIDERS: PCP Internal Medicine; Visit Provider Physician Assistant Medical
DX: E11.9 Type 2 diabetes mellitus without complications (principal)

== ENCOUNTER → 2025-02-18 14:59 | Outpatient (BNVA) | payer MEDICARE, SELFPAY | PROVIDERS: PCP Internal Medicine; Visit Provider Physician Assistant Medical | DX: E11.9 Type 2 diabetes mellitus without complications (principal); Z13.31 Encounter for screening for depression; Z13.39 Encounter for screening examination for other mental health and behavioral disorders | CPT/HCPCS: 83036; 96127; 99212 ==